=== PATIENT | female | born 1990 | race African-American/Black ===

== ENCOUNTER → 2020-07-14 08:04 | Outpatient (BNVA) | payer OTHER, SELFPAY | PROVIDERS: PCP Internal Medicine; Visit Provider Family Medicine Adult Medicine ==

== ENCOUNTER → 2020-08-09 13:52 | Outpatient (BNVA) | payer OTHER, SELFPAY | PROVIDERS: PCP Internal Medicine; Visit Provider Nurse Practitioner Family | DX: M08.00 Unspecified juvenile rheumatoid arthritis of unspecified site (principal); M79.7 Fibromyalgia | CPT/HCPCS: 99202 ==

== ENCOUNTER 2023-06-28 13:52 | Outpatient (AMB) | payer OTHER, SELFPAY ==
--- NOTE | 2023-06-28 13:53 | A.OFFVIS_ITS ---
Intake Vital Signs 06/28/23 13:59 Height 4 ft 11 in Weight 163 lb 9.328 oz BMI 33.0 BP 116/68 Blood Pressure Location Rt brachial Position Sitting Pulse 96 Pulse Source Pulse Oximeter Pulse Oximetry (%) 99 Oxygen Delivery Method Room Air Intake Visit Reasons: juvenile rheumatoid arthritis Intake Note: New patient, internally referred, presents to office today for JRA. Previously followed by [facility] [address] [place]. MTX-ineffective, nausea Enbrel, Humira, Remicade- Either ineffective or on acceptable infusion reaction w/ Remicade September 2016 to about September 2017- Hydroxychloroquine: Stopped because of visual disturbances Tofacitinib Nov 2016 through July- lost effectiveness Orencia IV infusions Nov 2017 through January 2018- stopped because of hair thinning Cimzia January 2018 Bus Escort Required: No Accompanied by: Self / Same As Patient Allergies No Known Allergies Allergy (Verified 06/28/23 14:01) HPI HPI Comments History of Present Illness Details Ms. Cevallos is a pleasant 29 year old female who presents to the office to establish care given her history of JRA/RA. She also reports having fibromyalgia. Her most painful area is her low back with radiation into bilateral lower extremities. Her pain is across her low back and radiates down her legs laterally with associated numbness, burning and tingling. She states this pain has been present for over three years and may have been incited by . She also has complaints of pain to multiple joints. Her last medicat ion regimen for RA was prednisone 1 mg TID and monthly Actemra infusions. In the past she has tried methotrexate, enbrel, humira, remicade, hydroxychloroquine, orencia and cimzia with either decreased effect over time, adverse effects or no effect. She has had a DEXA scan in 2020 that was not significant for osteoporosis. She has been on prednisone for long periods of time and radijeffry does not want to do that again. She reports pain onset was gradual, constant and rates the pain a 9/10. She states the pain is interfering with sleep, activities of daily living and she cannot function normally. The patient reports the pain in terms of tissue damage as stabbing, pulsing, sharp, cramping as well as tiring, sickening and radiating. In the past she has received joint injections to her shoulders, knees and wrists with no alleviation on her pain. She has tried the maximum dose of Tramadol which worked initially but quickly built a tolerance. She has been on gabapentin for years and has not tried lyrica or savella. She is currently on cymbalta for mood, and does not notice any changes in pain with its use. She is currently seeing a therapist every two weeks and her psychiatrist every two months. She notes having difficulty with depression/anxiety, as she has a son who is nonverbal with a potential musculoskeletal disorder and has had difficulty getting services for him. She has tried physical therapy in the past for many different pains, but would end up exacerbating her pain and was not able to tolerate it. Although with 2 young children; a 4-year-old and 1 under a year old. [facility] Medical History (Updated 07/04/23 @ 10:42 by Faye Chandra [facility]) Long-term use of immunosuppressant medication Screening examination for infectious disease Seronegative rheumatoid arthritis Asthma Anxiety History of anemia Rheumatoid arthritis, unspecified Hemorrhoid Frequent headaches Other intervertebral disc degeneration, lumbar region Surgical History (Updated 06/28/23 @ 14:01 by Cielo Ruiz CCM) History of 2 sections Hx of colonoscopy History of appendectomy Social History (Updated 06/28/23 @ 14:13 by ARIEL Rodriguez) Alcohol intake: current Alcohol intake frequency: does not drink Patient Tobacco Use Status: Never used Tobacco e-Cigarette/Vaping Use: Never Used Current occupational status: unemployed Review of Systems Const All systems reviewed & are unremarkable except as noted in HPI and below Physical Exam Vital Signs: Last Vital Signs Pulse 96 06/28/23 13:59 BP 116/68 06/28/23 13:59 Pulse Ox 99 06/28/23 13:59 Oxygen Delivery Method Room Air 06/28/23 13:59 BMI result Body Mass Index 33.0 APPEARANCE: Patient in no acute distress, groomed, nourished EYES no redness, normal EARS:? External ear normal. NOSE/SINUS:? Airflow through both nares, no nasal discharge, no bleeding THROAT:? Oral mucosa moist, no ulcerations NECK:? No thyromegaly or masses, no adenopathy, trachea midline. HEART:? Regular rhythm, S1-S2 heard, no murmurs, rubs or gallops. LUNG:? Clear to percussion and auscultation EXTREMITIES:? No edema, no calf tenderness, normal peripheral pulses. NEURO:? Oriented and alert x3.? No focal weakness.? Reflexes symmetric.? Gait normal. SKIN:? There are no skin lesions evident. No objective signs of Raynaud's phenomenon. JOINT EXAM: Cervical Spine:.? Full range of motion without pain; no tenderness. Thoracic Spine:.? No scoliosis.? No tenderness on palpation. Lumbar Spine:.? Alignment normal.? Full range of motion without pain, mild tenderness. Chest Wall:.? No tenderness, swelling, increased warmth or erythema. Hands:.? Normal pain-free range of motion with tenderness right MCP 1 2 and 3 but no swelling, increased warmth or erythema. Able to make a full fist and has some decrease skate maker strength bilaterally Wrists:.? Normal pain-free range of motion with tenderness and trace swelling to left wrist, but no increased warmth or erythema. Reduced range of motion to right wrist Elbows:. Normal pain-free range of motion with tenderness right lateral epicondyle but no swelling, increased warmth or erythema. Shoulders:.?? Full range of motion without pain. No tenderness, weakness, swelling, increased warmth or erythema. Hips:.? Full range of motion without pain. Hip bursa:.? No tenderness. Knees:.?? Normal pain-free range of motion without tenderness, swelling, increased warmth or erythema.? There is no effusion or crepitation Ankles:.? Normal pain-free range of motion without tenderness, swelling, increased warmth or erythema. Feet:.? Normal pain-free range of motion with tenderness right foot across the MTP, but no swelling, increased warmth or erythema. Tender points:? No tenderness to digital palpation at the occiput, trapezius, second rib, lateral epicondyle, knees, greater trochanter and gluteal area bilaterally. 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 Cevallos with history of JRA/RA here to reestablish care. She has had some lies changes including baby within the last year caring for her 4-year-old son who has developmental challenges. She has been off of medication for at least 2 years and so I will obtain x-rays and labs to establish her baseline. She was last on Actemra and prednisone. I think it makes sense to restart those. The patient does not like to self inject so she prefers to do the infusion. I will put through the PA for Actemra infusions. We discussed the possible side effects of being on Actemra and immunosuppressive medication in general. I spent 50 minutes reviewing her history, evaluating assessing patient and documenting Follow-up in 2 weeks to review diagnostics and further discuss treatment course Orders: Orders JANET Reflex Titer and Pattern 06/28/23 M06.00 - Rheumatoid arthritis without rheumatoid factor, unspecified site, M08.00 - Unspecified juvenile rheumatoid arthritis of unspecified site, Z11.9 - Encounter for screening for infectious and parasitic diseases, unspecified Anti Extractable Nuclear Ag 06/28/23 M06.00 - Rheumatoid arthritis without rheumatoid factor, unspecified site, M08.00 - Unspecified juvenile rheumatoid arthritis of unspecified site, Z11.9 - Encounter for screening for infectious and parasitic diseases, unspecified Complement C4 06/28/23 M06.00 - Rheumatoid arthritis without rheumatoid factor, unspecified site, M08.00 - Unspecified juvenile rheumatoid arthritis of unspecified site, Z11.9 - Encounter for screening for infectious and parasitic diseases, unspecified Complete Blood Count Auto Diff 06/28/23 M06.00 - Rheumatoid arthritis without rheumatoid factor, unspecified site, M08.00 - Unspecified juvenile rheumatoid arthritis of unspecified site, Z11.9 - Encounter for screening for infectious and parasitic diseases, unspecified Comprehensive Met. Panel 06/28/23 M06.00 - Rheumatoid arthritis without rheumatoid factor, unspecified site, M08.00 - Unspecified juvenile rheumatoid arthritis of unspecified site, Z11.9 - Encounter for screening for infectious and parasitic diseases, unspecified C Reactive Protein 06/28/23 M06.00 - Rheumatoid arthritis without rheumatoid factor, unspecified site, M08.00 - Unspecified juvenile rheumatoid arthritis of unspecified site, Z11.9 - Encounter for screening for infectious and parasitic diseases, unspecified Erythrocyte Sedimentation Rate 06/28/23 M06.00 - Rheumatoid arthritis without rheumatoid factor, unspecified site, M08.00 - Unspecified juvenile rheumatoid arthritis of unspecified site, Z11.9 - Encounter for screening for infectious and parasitic diseases, unspecified Immunofixation Pnl, Serum 06/28/23 M06.00 - Rheumatoid arthritis without rheumatoid factor, unspecified site, M08.00 - Unspecified juvenile rheumatoid arthritis of unspecified site, Z11.9 - Encounter for screening for infectious and parasitic diseases, unspecified T Spot TB 06/28/23 M06.00 - Rheumatoid arthritis without rheumatoid factor, unspecified site, M08.00 - Unspecified juvenile rheumatoid arthritis of unspecified site, Z11.9 - Encounter for screening for infectious and parasitic diseases, unspecified Hepatitis A,B,C Profile 06/28/23 M06.00 - Rheumatoid arthritis without rheumatoid factor, unspecified site, M08.00 - Unspecified juvenile rheumatoid arthritis of unspecified site, Z11.9 - Encounter for screening for infectious and parasitic diseases, unspecified XR hand LT min 3V 06/28/23 M06.00 - Rheumatoid arthritis without rheumatoid factor, unspecified site XR hand RT min 3V 06/28/23 M06.00 - Rheumatoid arthritis without rheumatoid factor, unspecified site XR foot LT min 3V 06/28/23 M06.00 - Rheumatoid arthritis without rheumatoid factor, unspecified site Anti-Centromere B Antibodies 06/28/23 M06.00 - Rheumatoid arthritis without rheumatoid factor, unspecified site, M08.00 - Unspecified juvenile rheumatoid arthritis of unspecified site, Z11.9 - Encounter for screening for infectious and parasitic diseases, unspecified Anti DNA DS Antibody 06/28/23 M06.00 - Rheumatoid arthritis without rheumatoid factor, unspecified site, M08.00 - Unspecified juvenile rheumatoid arthritis of unspecified site, Z11.9 - Encounter for screening for infectious and parasitic diseases, unspecified Complement C3 06/28/23 M06.00 - Rheumatoid arthritis without rheumatoid factor, unspecified site, M08.00 - Unspecified juvenile rheumatoid arthritis of u nspecified site, Z11.9 - Encounter for screening for infectious and parasitic diseases, unspecified Creatine Kinase Total 06/28/23 M06.00 - Rheumatoid arthritis without rheumatoid factor, unspecified site, M08.00 - Unspecified juvenile rheumatoid arthritis of unspecified site, Z11.9 - Encounter for screening for infectious and parasitic diseases, unspecified Immunoglobulins,IgG IgA IgM 06/28/23 M06.00 - Rheumatoid arthritis without rheumatoid factor, unspecified site, M08.00 - Unspecified juvenile rheumatoid arthritis of unspecified site, Z11.9 - Encounter for screening for infectious and parasitic diseases, unspecified Protein Electrophoresis, Serum 06/28/23 M06.00 - Rheumatoid arthritis without rheumatoid factor, unspecified site, M08.00 - Unspecified juvenile rheumatoid arthritis of unspecified site, Z11.9 - Encounter for screening for infectious and parasitic diseases, unspecified UA w Microscopic 06/28/23 M06.00 - Rheumatoid arthritis without rheumatoid factor, unspecified site, M08.00 - Unspecified juvenile rheumatoid arthritis of unspecified site, Z11.9 - Encounter for screening for infectious and parasitic diseases, unspecified XR foot RT min 3V 06/28/23 M06.00 - Rheumatoid arthritis without rheumatoid factor, unspecified site Coding Level of Care Code New Pt Level 5 (29915) Diagnoses Seronegative rheumatoid arthritis M06.00 Screening examination for infectious disease Z11.9 Long-term use of immunosuppressant medication Z79.60
[2023-06-28 13:59] VITALS: BP 116/68; PULSE 96; O2SAT 99; BMI 33.0
== END 2023-06-28 14:45 | disposition home or self-care (01) ==
PROVIDERS: PCP Internal Medicine; Visit Provider Nurse Practitioner Family
DX: M06.09 Rheumatoid arthritis without rheumatoid factor, multiple sites (principal); Z11.9 Encounter for screening for infectious and parasitic diseases, unspecified; Z79.60 Long term (current) use of unspecified immunomodulators and immunosuppressants
CPT/HCPCS: 99205

== ENCOUNTER → 2023-06-28 13:52 | Outpatient (BNVA) | payer OTHER, SELFPAY | PROVIDERS: PCP Internal Medicine; Visit Provider Nurse Practitioner Family | DX: M06.00 Rheumatoid arthritis without rheumatoid factor, unspecified site (principal); M08.00 Unspecified juvenile rheumatoid arthritis of unspecified site; M79.7 Fibromyalgia; Z79.60 Long term (current) use of unspecified immunomodulators and immunosuppressants; Z11.9 Encounter for screening for infectious and parasitic diseases, unspecified | CPT/HCPCS: 99202 ==

== ENCOUNTER 2023-07-08 11:11 | Outpatient (REF) | payer OTHER, SELFPAY ==
--- NOTE | ~2023-07-08 | XR_ITS ---
EXAMINATION: XR FOOT, RIGHT CLINICAL INFORMATION: Rheumatoid arthritis, without rheumatoid factor. COMPARISON: None available. TECHNIQUE: AP, lateral, and oblique views of the right foot. FINDINGS: The bones and soft tissues are normal. No fracture. Alignment is anatomic. Joint spaces are maintained. XR/XR foot RT min 3V IMPRESSION: Normal right foot. EXAMINATION: XR FOOT, LEFT CLINICAL INFORMATION: Rheumatoid arthritis, without rheumatoid factor. COMPARISON: None available. TECHNIQUE: AP, lateral, and oblique views of the left foot. FINDINGS: Bony alignment and mineralization are normal. No fracture or dislocation is seen. A small left ankle joint effusion is suspected. Boehler's angle is normal. There is a tiny plantar calcaneal spur. No abnormal bone erosion is seen. There is no focal soft tissue swelling, gas or foreign body. IMPRESSION: 1. A very small left ankle joint effusion is suspected. 2. There is a tiny calcaneal plantar spur.
--- NOTE | ~2023-07-08 | XR_ITS ---
EXAMINATION: XR HAND, RIGHT CLINICAL INFORMATION: Rheumatoid arthritis without rheumatoid factor. COMPARISON: None available. TECHNIQUE: PA, lateral, and oblique views of the right hand. FINDINGS: The bones and soft tissues are normal. No fracture. Alignment is anatomic. Joint spaces are maintained. No erosions or soft tissue calcifications. XR/XR hand RT min 3V IMPRESSION: Normal right hand. EXAMINATION: XR HAND, LEFT CLINICAL INFORMATION: Rheumatoid arthritis without rheumatoid factor. COMPARISON: None available. TECHNIQUE: PA, lateral, and oblique views of the left hand. FINDINGS: The bones and soft tissues are normal. No fracture. Alignment is anatomic. Joint spaces are maintained. No erosions or soft tissue calcifications. IMPRESSION: Normal left hand.
--- NOTE | ~2023-07-08 | XR_ITS ---
EXAMINATION: XR HAND, RIGHT CLINICAL INFORMATION: Rheumatoid arthritis without rheumatoid factor. COMPARISON: None available. TECHNIQUE: PA, lateral, and oblique views of the right hand. FINDINGS: The bones and soft tissues are normal. No fracture. Alignment is anatomic. Joint spaces are maintained. No erosions or soft tissue calcifications. XR/XR hand LT min 3V IMPRESSION: Normal right hand. EXAMINATION: XR HAND, LEFT CLINICAL INFORMATION: Rheumatoid arthritis without rheumatoid factor. COMPARISON: None available. TECHNIQUE: PA, lateral, and oblique views of the left hand. FINDINGS: The bones and soft tissues are normal. No fracture. Alignment is anatomic. Joint spaces are maintained. No erosions or soft tissue calcifications. IMPRESSION: Normal left hand.
--- NOTE | ~2023-07-08 | XR_ITS ---
EXAMINATION: XR FOOT, RIGHT CLINICAL INFORMATION: Rheumatoid arthritis, without rheumatoid factor. COMPARISON: None available. TECHNIQUE: AP, lateral, and oblique views of the right foot. FINDINGS: The bones and soft tissues are normal. No fracture. Alignment is anatomic. Joint spaces are maintained. XR/XR foot LT min 3V IMPRESSION: Normal right foot. EXAMINATION: XR FOOT, LEFT CLINICAL INFORMATION: Rheumatoid arthritis, without rheumatoid factor. COMPARISON: None available. TECHNIQUE: AP, lateral, and oblique views of the left foot. FINDINGS: Bony alignment and mineralization are normal. No fracture or dislocation is seen. A small left ankle joint effusion is suspected. Boehler's angle is normal. There is a tiny plantar calcaneal spur. No abnormal bone erosion is seen. There is no focal soft tissue swelling, gas or foreign body. IMPRESSION: 1. A very small left ankle joint effusion is suspected. 2. There is a tiny calcaneal plantar spur.
[2023-07-08 11:41] LABS: MANUAL DIFF FLAG NO
[2023-07-08 12:01] LABS: Basophils Percent Auto 0.3 % (0-2); Eosinophils Absolute Auto 0.3 X10*3/uL (0.0-0.4); Eosinophils Percent Auto 4.3 % (0-4); Hemoglobin 13.8 g/dl (12.0-16.0); Imm Gran Abs Auto 0.02 X10*3/uL (0.00-0.03); Imm Gran Pct Auto 0.3 % (0.0-0.4); Lymphocytes Absolute Auto 1.8 X10*3/uL (1.2-4.9); Lymphocytes Percent Auto 29.6 % (20-40); Mean Corpuscular HGB Conc 33.7 g/dl (31.0-35.0); Mean Corpuscular Hemoglobin 28.9 pg (27.0-33.0); Mean Corpuscular Volume 85.8 fL (80.0-98.0); Mean Platelet Volume 9.3 fL (9.4-12.3); Monocytes Absolute Auto 0.5 X10*3/uL (0.1-1.2); Monocytes Percent Auto 8.5 % (2-11); Neutrophils Absolute Auto 3.5 x10*3/uL (2.0-8.3); Platelet Count 255 X10*3/uL (160-400); Red Blood Count 4.78 X10*6/uL (4.20-5.50); Red Cell Distribution Width 12.4 % (11.0-16.0); White Blood Count 6.1 X10*3/uL (4.8-10.8)
[2023-07-08 12:46] LABS: Erythrocyte Sedimentation Rate 8 MM/HR (0-20)
[2023-07-08 13:28] LABS: Alanine Aminotransferase 54 U/L (0-31); Alkaline Phosphatase 120 U/L (39-117); Anion Gap 9 (12-20); Aspartate Amino Transferase 29 U/L (5-31); Bilirubin Total 0.4 mg/dL (0.0-1.0); Blood Urea Nitrogen 9 mg/dL (9-16); C Reactive Protein 0.13 mg/dL (< or = 0.50); Calcium 9.6 mg/dL (8.4-10.2); Carbon Dioxide 27 mmol/L (22-29); Chloride 106 mmol/L (96-108); Estimated Glomerular Filt Rate > 60; Glucose Random 90 mg/dL (60-115); Potassium 4.1 mmol/L (3.3-5.1); Sodium 138 mmol/L (135-145); Total Protein 7.4 g/dL (6.5-8.0)
[2023-07-08 13:52] LABS: Appearance Urine Clear; Color Urine Yellow; Glucose Urine UA Negative (Negative); Leukocyte Esterase Urine Negative (Negative); Nitrite Urine Negative (Negative); PH 7.5 (5.0-9.0); Urine Blood Negative (Negative); Urine Ketones Negative (Negative); Urine Protein Negative (Neg-Trace)
[2023-07-08 13:59] LABS: Bacteria Urine None Seen (None Seen); Hyaline Casts Urine 0-2 /LPF (0-2); RBC Urine 0-2 /HPF (0-2); Squamous Epithelial Cell Urine 0-2 /HPF (0-2); WBC Urine 0-5 /HPF (0-5)
[2023-07-09 05:09] LABS: HBS Num1 0.68 mIU/mL (0-7.99); HBsAGNum1 0.29 S/CO (0.00-0.99); Hepatitis B Core Antibody Nonreactive (Nonreactive); Hepatitis B Surface Antigen Negative (Negative); ~HepC Num1 0.07 S/CO (0.00-0.79); ~Hepatitis B Surface Antibody NONREACTIVE (Nonreactive); ~Hepatitis C Antibody Nonreactive (Nonreactive)
[2023-07-09 05:41] LABS: Hepatitis A Antibody IgM 0.16 Index (0-0.79); ~Hepatitis A Antibody IgM Nonreactive (Nonreactive)
[2023-07-09 10:04] LABS: Complement C3 137 mg/dL (83-193)
[2023-07-09 22:08] LABS: Prot Elec - Albumin 4.1 g/dL (3.8-4.8); Prot Elec - Alpha1 0.3 g/dL (0.2-0.3); Prot Elec - Alpha2 0.7 g/dL (0.5-0.9); Prot Elec - Beta 1 0.5 g/dL (0.4-0.6); Prot Elec - Beta 2 0.5 g/dL (0.2-0.5)
[2023-07-09 23:13] LABS: Anti DNA DS Antibody <1 IU/mL; SM/Ribonucleoprotein Ab <1.0 NEG AI (<1.0 NEG); Smith Protein <1.0 NEG AI (<1.0 NEG)
[2023-07-10 13:34] LABS: IgA 403 mg/dL (47-310); IgG 1038 mg/dL (600-1640); IgM 124 mg/dL (50-300)
[2023-07-10 20:58] LABS: TS Negative Control Passed; TS Panel A 0; TS Panel B 0; TS Positive Control Passed; TSpotTB Negative (Negative)
[2023-07-11 22:14] LABS: Anti-Centromere B Antibodies <1.0 NEG AI (<1.0 NEG)
[2023-07-12 12:18] LABS: Anti Nuclear Antibody Pattern Nuclear, Speckled; Anti Nuclear Antibody Screen POSITIVE (NEGATIVE)
== END 2023-07-08 11:12 | disposition home or self-care (01) ==
LOC: HO.LAB 11:11
PROVIDERS: Visit Provider Nurse Practitioner Family
DX: M08.00 Unspecified juvenile rheumatoid arthritis of unspecified site (principal); Z11.9 Encounter for screening for infectious and parasitic diseases, unspecified
CPT/HCPCS: 36415; 73130; 73630; 80053; 81001; 82550; 82784; 84165; 85025; 85652; 86038; 86039; 86140; 86160; 86225; 86235; 86334; 86481; 86704; 86706; 86709; 86803; 87340

== ENCOUNTER 2023-07-12 13:44 | Outpatient (AMB) | payer OTHER, SELFPAY ==
--- NOTE | 2023-07-12 13:48 | MHC.OFFVIS ---
Intake Vital Signs 07/12/23 13:52 Height 4 ft 11 in Weight 163 lb 9.328 oz BMI 33.0 BP 120/90 H Blood Pressure Location Rt brachial Position Sitting Pulse 94 Pulse Source Pulse Oximeter Temp 97.4 F Temp Source Skin Pulse Oximetry (%) 97 Oxygen Delivery Method Room Air Intake Visit Reasons: JRA/Labs now/Poss Actemra infusion Intake Note: Patient last seen 06/28/23 by Prateek, presents today for follow up and test results. Travel Writer Required: No Accompanied by: Child Allergies No Known Allergies Allergy (Verified 07/12/23 13:53) HPI HPI Comments History of Present Illness Details Ms. Cevallos has returned to review her labs and discuss treatment with Actemra infusion for her seronegative rheumatoid arthritis/JRA. She is accompanied by her young son Matt. Patient reports that she is currently having bronchitis and a cough and wants to delay starting the infusion until that has resolved. She reports no further complaints since last visit. Initial visit 06/28/2023 Faye: Ms. Cevallos is a pleasant 29 year old female who presents to the office to establish care given her history of JRA/RA. She also reports having fibromyalgia. Her most painful area is her low back with radiation into bilateral lower extremities. Her pain is across her low back and radiates down her legs laterally with associated numbness, burning and tingling. She states this pain has been present for over three years and may have been incited by . She also has complaints of pain to multiple joints. Her last medication regimen for RA was prednisone 1 mg TID and monthly Actemra infusions. In the past she has tried methotrexate, enbrel, humira, remicade, hydroxychloroquine, orencia and cimzia with either decreased effect over time, adverse effects or no effect. She has had a DEXA scan in 2020 that was not significant for osteoporosis. She has been on prednisone for long periods of time and radiates does not want to do that again. She reports pain onset was gradual, constant and rates the pain a 9/10. She states the pain is interfering with sleep, activities of daily living and she cannot function normally. The patient reports the pain in terms of tissue damage as stabbing, pulsing, sharp, cramping as well as tiring, sickening and radiating. In the past she has received joint injections to her shoulders, knees and wrists with no alleviation on her pain. She has tried the maximum dose of Tramadol which worked initially but quickly built a tolerance. She has been on gabapentin for years and has not tried lyrica or savella. She is currently on cymbalta for mood, and does not notice any changes in pain with its use. She is currently seeing a therapist every two weeks and her psychiatrist every two months. She notes having difficulty with depression/anxiety, as she has a son who is nonverbal with a potential musculoskeletal disorder and has had difficulty getting services for him. She has tried physical therapy in the past for many different pains, but would end up exacerbating her pain and was not able to tolerate it. Although with 2 young children; a 4-year-old and 1 under a year old. [facility] Medical History (Updated 07/04/23 @ 10:42 by [facility] Long-term use of immunosuppressant medication Screening examination for infectious disease Seronegative rheumatoid arthritis Asthma Anxiety History of anemia Rheumatoid arthritis, unspecified Hemorrhoid Frequent headaches Other intervertebral disc degeneration, lumbar region Surgical History History of 2 sections Hx of colonoscopy History of appendectomy Social History Alcohol intake: current Alcohol intake frequency: does not drink Patient Tobacco Use Status: Never used Tobacco e-Cigarette/Vaping Use: Never Used Current occupational status: unemployed Review of Systems Const All systems reviewed & are unremarkable except as noted in HPI and below Physical Exam Vital Signs: Last Vital Signs Temp 97.4 F 07/12/23 13:52 Pulse 94 07/12/23 13:52 BP 120/90 H 07/12/23 13:52 Pulse Ox 97 07/12/23 13:52 Oxygen Delivery Method Room Air 07/12/23 13:52 BMI result Body Mass Index 33.0 Vital signs reviewed. Constitutional: Non-toxic appearing. No acute distress. Well-developed and well-nourished. HEENT: Normocephalic and atraumatic. External auditory canals without erythema or edema bilaterally. Skin: Warm and dry. No rashes or lesions noted. Cardio: Regular rate and rhythm. No murmurs, gallops, or rubs. No lower extremity edema. No JVD. Pulmonary: No respiratory distress. No accessory muscle usage. Musculoskeletal: Normal range of motion in joints throughout the body. No deformity or other signs of injury. Neuro: Alert and oriented x4. Cranial nerves 2-12 grossly intact. No focal deficits appreciated. 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 Cevallos with history of JRA/RA here to reestablish care. She has had some life changes including baby within the last year caring for her 8-year-old son who has developmental challenges. She has been off of medication for at least 2 years so we ordered Actemra for her to start the infusion 4 mg per kg monthly. No immediate concern with the results of her labs and x-ray. She wants to hold off having the infusion at this time of her from bronchitis and a cough. patient will call the infusion center and make that appointment. We discussed the possible side effects of being on Actemra and immunosuppressive medication in general. She will obtain labs 1 would be for her next visit in 3 months. She has baseline mild elevation in ALT. Patient denies alcohol use. She may be taking too much Tylenol so she will review that and decrease her intake. So be careful to watch her ALT while taking Actemra. I spent 20 minutes reviewing her chart, evaluating assessing patient and documenting Follow-up in 12 weeks to to assess for improvement and review labs. 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 Panel Today M06.00 - Rheumatoid arthritis without rheumatoid factor, unspecified site, Z79.60 - remote computer terminal operator (current) use of unspecified immunomodulators and immunosuppressants Coding Level of Care Code Est Pt Level 3 (99091) Diagnoses Seronegative rheumatoid arthritis M06.00 Long-term use of immunosuppressant medication Z79.60
[2023-07-12 13:52] VITALS: BP 120/90; PULSE 94; TEMP 36.3; O2SAT 97; BMI 33.0
== END 2023-07-12 14:26 | disposition home or self-care (01) ==
PROVIDERS: PCP Internal Medicine; Visit Provider Nurse Practitioner Family
DX: M06.00 Rheumatoid arthritis without rheumatoid factor, unspecified site (principal); Z79.60 Long term (current) use of unspecified immunomodulators and immunosuppressants
CPT/HCPCS: 99213

== ENCOUNTER → 2023-07-12 13:44 | Outpatient (BNVA) | payer OTHER, SELFPAY | PROVIDERS: PCP Internal Medicine; Visit Provider Nurse Practitioner Family | DX: M06.00 Rheumatoid arthritis without rheumatoid factor, unspecified site (principal); Z79.60 Long term (current) use of unspecified immunomodulators and immunosuppressants | CPT/HCPCS: 99212 ==

== ENCOUNTER 2023-10-10 09:56 | Outpatient (AMB) | payer OTHER, SELFPAY ==
--- NOTE | 2023-10-10 09:59 | MHC.OFFVIS ---
Vital Signs 10/10/23 10:01 Height 4 ft 11 in Weight 165 lb BMI 33.3 BP 120/80 Blood Pressure Location Rt brachial Pulse 89 Pulse Source Pulse Oximeter Pulse Oximetry (%) 96 Oxygen Delivery Method Room Air Intake Visit Reasons: JRA/lm Intake Note: Patient presents for JRA. Having very bad sciatica pain on lower back Allergies No Known Allergies Allergy (Verified 10/10/23 10:05) Medication List - Last Reconciled 10/10/23 by Rodrigo Schneider MD albuterol sulfate 90 mcg/actuation (Ventolin HFA) inhalation clonazepam 0.5 mg PO DAILY meclizine 25 mg PO TID PRN HPI Comments Details: This is a 32-year-old female with seronegative RA who presents for follow-up. Patient received 2 Actemra infusions so far. Infusions were uneventful. She states that she continues to have some joint aches but no significant swelling. She is having significant sciatica pain. She has lower back pain radiating down both lower extremities. She was evaluated by pain management in the past and had a cortisone injection, she stated that it did not help at all. She does not want to go back to pain management. Initial visit 06/28/2023 Faye: Ms. Cevallos is a pleasant 29 year old female who presents to the office to establish care given her history of JRA/RA. She also reports having fibromyalgia. Her most painful area is her low back with radiation into bilateral lower extremities. Her pain is across her low back and radiates down her legs laterally with associated numbness, burning and tingling. She states this pain has been present for over three years and may have been incited by . She also has complaints of pain to multiple joints. Her last medication regimen for RA was prednisone 1 mg TID and monthly Actemra infusions. In the past she has tried methotrexate, enbrel, humira, remicade, hydroxychloroquine, orencia and cimzia with either decreased effect over time, adverse effects or no effect. She has had a DEXA scan in 2020 that was not significant for osteoporosis. She has been on prednisone for long periods of time and radiates does not want to do that again. She reports pain onset was gradual, constant and rates the pain a 9/10. She states the pain is interfering with sleep, activities of daily living and she cannot function normally. The patient reports the pain in terms of tissue damage as stabbing, pulsing, sharp, cramping as well as tiring, sickening and radiating. In the past she has received joint injections to her shoulders, knees and wrists with no alleviation on her pain. She has tried the maximum dose of Tramadol which worked initially but quickly built a tolerance. She has been on gabapentin for years and has not tried lyrica or savella. She is currently on cymbalta for mood, and does not notice any changes in pain with its use. She is currently seeing a therapist every two weeks and her psychiatrist every two months. She notes having difficulty with depression/anxiety, as she has a son who is nonverbal with a potential musculoskeletal disorder and has had difficulty getting services for him. She has tried physical therapy in the past for many different pains, but would end up exacerbating her pain and was not able to tolerate it. Although with 2 young children; a 4-year-old and 1 under a year old. [facility] Medical History (Updated 10/10/23 @ 11:02 by Rodrigo Schneider MD) Seronegative rheumatoid arthritis Asthma Anxiety History of anemia Rheumatoid arthritis, unspecified Hemorrhoid Frequent headaches Other intervertebral disc degeneration, lumbar region Surgical History History of 2 sections Hx of colonoscopy History of appendectomy Social History Alcohol intake: current Alcohol intake frequency: does not drink Patient Tobacco Use Status: Never used Tobacco e-Cigarette/Vaping Use: Never Used Current occupational status: unemployed Review of Systems [facility] Reports back pain, Reports arthralgias, Denies joint swelling, Reports numbness, Reports radiating pain into limb and Reports stiffness Neuro Reports numbness Physical Exam Vital Signs: Last Vital Signs Pulse 89 10/10/23 10:01 BP 120/80 10/10/23 10:01 Pulse Ox 96 10/10/23 10:01 Oxygen Delivery Method Room Air 10/10/23 10:01 BMI result Body Mass Index 33.3 Const General: cooperative, healthy appearing and comfortable Nutritional Appearance: obese Orientation/consciousness: patient oriented x3 Limitations: no limitations HEENT Head: Yes normocephalic and Yes atraumatic Mouth: moist mucous membranes Resp Effort & Inspection: normal respiratory effort and able to speak in complete sentences Auscultation: clear to auscultation bilaterally Cardio Rate: regular rate Rhythm: regular rhythm Skin General skin exam: no rashes or lesions noted Neuro General: patient oriented x3 Extrem Other: No active synovitis Normal nailfold capillaroscopy Few fibromyalgia tender points Positive straight leg raise test bilaterally Assessment & Plan Assessment & Plan (1) Seronegative rheumatoid arthritis: Comment: dx with JRA at age 6 tried methotrexate, enbrel, humira, remicade, hydroxychloroquine, orencia and cimzia with either decreased effect over time Actemra infusion approx 2020 effective Code(s): M06.00 - Rheumatoid arthritis without rheumatoid factor, unspecified site Category: Medical Plan: This is a 32-year-old female with seronegative RA who presents for follow-up. He is on Actemra infusions. Doing well overall with no active synovitis. Inflammatory markers normal. Continue Actemra infusions. 4 milligrams/kilograms q.4 weeks Labs before next visit in 4 months (2) Sciatica: Code(s): M54.30 - Sciatica, unspecified side Category: Medical Qualifiers: Laterality: bilateral Qualified Code(s): M54.31 - Sciatica, right side; M54.32 - Sciatica, left side Plan: Patient not interested pain management evaluation. Agreeable to start PT. Referred patient to PT (3) Long-term use of immunosuppressant medication: Code(s): Z79.60 - [facility] (current) use of unspecified immunomodulators and immunosuppressants Category: Medical (4) Fibromyalgia: Code(s): M79.7 - Fibromyalgia Category: Medical Plan: Has tried different meds in the past including gabapentin. Does not look like that she tried Savella. Was on duloxetine for her anxiety/depression. Discussed management of fibromyalgia with patient. Is a noninflammatory, non-autoimmune central afferent processing disorder leading to a diffuse pain syndrome. Patient follows up regularly with her psychotherapist and psychiatrist. Try to follow sleep hygiene practices. Consider a sleep study to rule out FOSTER. Patient would benefit from increased physical activity, either through formal physical therapy or by joining a gym. Advised patient that she should start activity slowly and increase as tolerated. Consider low-impact exercises such as walking, swimming, aqua therapy stretching, yoga. Plan I spent 47 minutes reviewing patient's chart, evaluating patient, ordering diagnostic workup, counseling patient and documenting in the chart Orders: Orders Comprehensive Met. Panel 4 Months M06.00 - Rheumatoid arthritis without rheumatoid factor, unspecified site, Z79.60 - [employer] (current) use of unspecified immunomodulators and immunosuppressants C Reactive Protein 4 Months M06.00 - Rheumatoid arthritis without rheumatoid factor, unspecified site, Z79.60 - [facility] [facility] (current) use of unspecified immunomodulators and immunosuppressants Complete Blood Count Auto Diff 4 Months M06.00 - Rheumatoid arthritis without rheumatoid factor, unspecified site, Z79.60 - [employer] [facility] (current) use of unspecified immunomodulators and immunosuppressants Erythrocyte Sedimentation Rate 4 Months M06.00 - Rheumatoid arthritis without rheumatoid factor, unspecified site, Z79.60 - [employer] (current) use of unspecified immunomodulators and immunosuppressants PT Evaluation and Treatment Today M54.30 - Sciatica, unspecified side Coding Level of Care Code Est Pt Level 5 (52661) Diagnoses Seronegative rheumatoid arthritis M06.00 Bilateral sciatica M54.31; M54.32 Laterality: bilateral Long-term use of immunosuppressant medication Z79.60 Fibromyalgia M79.7
[2023-10-10 10:01] VITALS: BP 120/80; PULSE 89; O2SAT 96; BMI 33.3
== END 2023-10-10 10:34 | disposition home or self-care (01) ==
PROVIDERS: PCP Student in an Organized Health Care Education/Training Program; Visit Provider Student in an Organized Health Care Education/Training Program
DX: M06.09 Rheumatoid arthritis without rheumatoid factor, multiple sites (principal); M54.31 Sciatica, right side; M54.32 Sciatica, left side; Z79.60 Long term (current) use of unspecified immunomodulators and immunosuppressants; M79.7 Fibromyalgia
CPT/HCPCS: 99215

== ENCOUNTER → 2023-10-10 09:56 | Outpatient (BNVA) | payer OTHER, SELFPAY | PROVIDERS: PCP Student in an Organized Health Care Education/Training Program; Visit Provider Student in an Organized Health Care Education/Training Program | DX: M06.00 Rheumatoid arthritis without rheumatoid factor, unspecified site (principal); M54.32 Sciatica, left side; M54.31 Sciatica, right side; M79.7 Fibromyalgia; Z79.60 Long term (current) use of unspecified immunomodulators and immunosuppressants | CPT/HCPCS: 99212 ==

== ENCOUNTER 2024-03-31 12:29 | Outpatient (AMB) | payer OTHER, SELFPAY ==
--- NOTE | 2024-03-31 12:48 | A.OFFVIS_ITS ---
Vital Signs 03/31/24 12:50 Height 4 ft 11 in Weight 167 lb 1.766 oz BMI 33.7 BP 122/80 Blood Pressure Location Rt brachial Position Sitting Pulse 86 Pulse Source Pulse Oximeter Pulse Oximetry (%) 96 Oxygen Delivery Method Room Air Intake Visit Reasons: RA Intake Note: Patient presents for RA. Allergies No Known Allergies Allergy (Verified 03/31/24 12:50) Medication List - Last Reconciled 03/31/24 by Rodrigo Schneider MD albuterol sulfate 90 mcg/actuation (Ventolin HFA) inhalation clonazepam 0.5 mg PO DAILY meclizine 25 mg PO TID PRN HPI Comments Details: This is a 33-year-old female with seronegative RA who presents for follow-up. On Actemra infusions every 4 weeks. She stated that she has been doing about the same overall. She continues to have intermittent left wrist achiness. Recently she had a mild sinus infection that resolved in a few days without antibiotics. She states that she will be starting school to learn aesthetics steady that her school should have sent over some documents that need to be completed by ammonium sulfate operator. Initial visit 06/28/2023 Faye: Ms. Cevallos is a pleasant 29 year old female who presents to the office to establish care given her history of JRA/RA. She also reports having fibromyalgia. Her most painful area is her low back with radiation into bilateral lower extremities. Her pain is across her low back and radiates down her legs laterally with associated numbness, burning and tingling. She states this pain has been present for over three years and may have been incited by . She also has complaints of pain to multiple joints. Her last medication regimen for RA was prednisone 1 mg TID and monthly Actemra infusions. In the past she has tried methotrexate, enbrel, humira, remicade, hydroxychloroquine, orencia and cimzia with either decreased effect over time, adverse effects or no effect. She has had a DEXA scan in 2020 that was not significant for osteoporosis. She has been on prednisone for long periods of time and radiates does not want to do that again. She reports pain onset was gradual, constant and rates the pain a 9/10. She states the pain is interfering with sleep, activities of daily living and she cannot function normally. The patient reports the pain in terms of tissue damage as stabbing, pulsing, sharp, cramping as well as tiring, sickening and radiating. In the past she has received joint injections to her shoulders, knees and wrists with no alleviation on her pain. She has tried the maximum dose of Tramadol which worked initially but quickly built a tolerance. She has been on gabapentin for years and has not tried lyrica or savella. She is currently on cymbalta for mood, and does not notice any changes in pain with its use. She is currently seeing a therapist every two weeks and her psychiatrist every two months. She notes having difficulty with depression/anxiety, as she has a son who is nonverbal with a potential musculoskeletal disorder and has had difficulty getting services for him. She has tried physical therapy in the past for many different pains, but would end up exacerbating her pain and was not able to tolerate it. Although with 2 young children; a 4-year-old and 1 under a year old. [facility] Medical History Seronegative rheumatoid arthritis Asthma Anxiety History of anemia Rheumatoid arthritis, unspecified Hemorrhoid Frequent headaches Other intervertebral disc degeneration, lumbar region Surgical History History of 2 sections Hx of colonoscopy History of appendectomy Social History Alcohol intake: current Alcohol intake frequency: does not drink Patient Tobacco Use Status: Never used Tobacco e-Cigarette/Vaping Use: Never Used Current occupational status: unemployed Review of Systems [facility] Reports arthralgias and Denies joint swelling Physical Exam Vital Signs: Last Vital Signs Pulse 86 03/31/24 12:50 BP 122/80 03/31/24 12:50 Pulse Ox 96 03/31/24 12:50 Oxygen Delivery Method Room Air 03/31/24 12:50 BMI result Body Mass Index 33.7 Const General: cooperative, healthy appearing and comfortable Nutritional Appearance: obese Orientation/consciousness: patient oriented x3 Limitations: no limitations HEENT Head: Yes normocephalic and Yes atraumatic Mouth: moist mucous membranes Resp Effort & Inspection: normal respiratory effort and able to speak in complete sentences Auscultation: clear to auscultation bilaterally Cardio Rate: regular rate Rhythm: regular rhythm Skin General skin exam: no rashes or lesions noted Neuro General: patient oriented x3 Extrem Other: No active synovitis Normal nailfold capillaroscopy Reduced left wrist range of motion and pain with flexion and extension Assessment & Plan Assessment & Plan (1) Seronegative rheumatoid arthritis: Comment: dx with JRA at age 6 tried methotrexate, enbrel, humira, remicade, hydroxychloroquine, orencia and cimzia with either decreased effect over time Actemra infusion approx 2020 effective Code(s): M06.00 - Rheumatoid arthritis without rheumatoid factor, unspecified site Category: Medical Plan: This is a 33-year-old female with seronegative RA who presents for follow-up. She is on Actemra infusions. Doing well overall with no active synovitis. Continue Actemra infusions. 4 milligrams/kilograms q.4 weeks Labs before next visit in 6 months (2) Long-term use of immunosuppressant medication: Code(s): Z79.60 - [facility] (current) use of unspecified immunomodulators and immuno suppressants Category: Medical Plan I spent 25 minutes reviewing patient's chart, evaluating patient, ordering diagnostic workup, counseling patient and documenting in the chart Orders: Orders Complete Blood Count Auto Diff 6 Months M06.00 - Rheumatoid arthritis without rheumatoid factor, unspecified site Erythrocyte Sedimentation Rate 6 Months M06.00 - Rheumatoid arthritis without rheumatoid factor, unspecified site Comprehensive Met. Panel 6 Months M06.00 - Rheumatoid arthritis without rheumatoid factor, unspecified site C Reactive Protein 6 Months M06.00 - Rheumatoid arthritis without rheumatoid factor, unspecified site Coding Level of Care Code Est Pt Level 4 (87512) Diagnoses Seronegative rheumatoid arthritis M06.00 Long-term use of immunosuppressant medication Z79.60
[2024-03-31 12:50] VITALS: BP 122/80; PULSE 86; O2SAT 96; BMI 33.7
== END 2024-03-31 13:06 | disposition home or self-care (01) ==
PROVIDERS: PCP Student in an Organized Health Care Education/Training Program; Visit Provider Student in an Organized Health Care Education/Training Program
DX: M06.00 Rheumatoid arthritis without rheumatoid factor, unspecified site (principal); Z79.60 Long term (current) use of unspecified immunomodulators and immunosuppressants
CPT/HCPCS: 99214

== ENCOUNTER → 2024-03-31 12:29 | Outpatient (BNVA) | payer OTHER, SELFPAY | PROVIDERS: PCP Student in an Organized Health Care Education/Training Program; Visit Provider Student in an Organized Health Care Education/Training Program | DX: M06.00 Rheumatoid arthritis without rheumatoid factor, unspecified site (principal); M79.7 Fibromyalgia; Z79.620 Long term (current) use of immunosuppressive biologic | CPT/HCPCS: 99212 ==

== ENCOUNTER 2024-05-29 07:55 | Outpatient (AMB) | payer OTHER, SELFPAY ==
--- OUTSIDE RECORDS SUMMARY | 2024-05-29 07:58 | XMS_ITS | Clinical Summary ---
Author Organization [facility] ity Address [address] [place] [address] Care Team Providers Care Mink Slicer Name Role Phone Dean Pollack MD Primary Care Provider Allergies Active Allergy Reactions Criticality Noted Date Comments Adalimumab Anaphylaxis High 04/06/2016 Hydroxychloroquine Sulfate Other 8 Vision loss Infliximab 01/06/2017 Medications predniSONE (DELTASONE) 20 mg tablet Take 3 tabs for 3 days, take 2 tabs for 3 days, take 1 tab for 3 days 4 Active cyclobenzaprine (FLEXERIL) 10 mg tablet Take 0.5-1 Tablets by mouth 2 times daily as needed for Muscle spasms. Medication may cause drowsiness, do not drive/operate machinery while taking 4 Active cetirizine (ZyrTEC) 10 mg tablet Take 1 Tablet by mouth at bedtime. 4 Active aspirin-acetami nophen-caffeine (EXCEDRIN MIGRAINE) 250-250-65 mg per tablet Take 1 tablet by mouth every 8 (eight) hours if needed. 4 Active albuterol HFA (PROAIR HFA ; PROVENTIL HFA ; VENTOLIN HFA) 90 mcg/actuation inhaler Inhale 2 Puffs into the lungs every 4 hours as needed for Cough or Shortness of Breath. 4 Active meclizine (ANTIVERT) 25 mg tablet Take 1 Tablet by mouth every 8 hours as needed (dizziness/vert igo). Medication may cause drowsiness, do not drive/operate machinery while taking 4 Active fluticasone propionate (FLONASE) 50 mcg/actuation nasal spray 1 [place] by Nasal route daily. 3 Active clonazePAM (KlonoPIN) 0.5 mg tablet Take 1 tablet (0.5 mg total) by mouth 2 (two) times a day if needed. 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 Gary lew [facility] then Dr. Shipman Treatment prior to coming to our group: Methotrexate - ineffective, nausea Enbrel, Humira, and Remicade: Either ineffective or on acceptable infusion reaction with the Remicade. September 2016 to about September 2017 hydroxychloroquine: Stopped because of visual disturbances. Tofacitinib November 2016 through July 2017 - lost effectiveness Orencia IV infusions November 2017 through January 2018- stopped because of hair thinning. Cimzia January 2018 see RA below Lumbar degenerative disc disease 07/08/2019 Frequent headaches 03/21/2017 Depression 03/20/2017 Hemorrhoids 03/20/2017 Rheumatoid arthritis 12/24/2016 Overview (04/02/2024): Onset age 6 DR[address] Gary lew [facility] then Dr. Shipman Treatment prior to coming to our group: Methotrexate - ineffective, nausea Enbrel, Humira, and Remicade: Either ineffective or unacceptable side effects. She had infusion reaction with the Remicade. September 2016 to about September 2017 hydroxychloroquine: Stopped because of visual disturbances. Tofacitinib November 2016 through July 2017 - lost effectiveness Orencia IV infusions November 2017 through January 2018- stopped because of hair thinning. Cimzia since January 2018 Actemra IV monthly in place of Cimzia since 06/03. Fibromyalgia 04/06/2016 Immunizations Name Administration Dates Next Due Influenza Quadravalent, MDCK , 0.5ml, preservative free (Flucelvax) 6mo and older 02/15/2021,02/12/2020,04/10/2019,2017 Influenza Quadravalent, MDCK , 0.5ml, with preservative (Flucelvax) 6mo and older 02/04/2023 Influenza trivalent, 0.5mL, preservative free (Fluarix; FluLaval; Fluzone) ages 6mo and older (Afluria) 3 years and older 04/06/2016 Tdap Tetanus diptheria acell ular pertussis (Boostrix; Adacel) 7yo and older 04/26/2023 Surgical History Surgery Date Site/Laterality Comments APPENDECTOMY PROCEDURE: HISTORICAL APPENDECTOMY SECTION 06/18/2015 PROCEDURE: HISTORICAL DELIVERY COLONOSCOPY 03/27/16 PROCEDURE: HISTORICAL COLONOSCOPY; COMMENT: hemorrhoids Medical History Medical History Date Comments Juvenile rheumatoid arthriti s ([facility]) 1997 DX:Juvenile rheumatoid arthr itis ([facility]); COMMENT: dr shipman Anxiety DX:Anxiety Childhood asthma DX:Childhood as thma Hemorrhoids 03/20/2017 DX:Hemorrhoids Depression 03/20/2017 DX:Depression Fibromyalgia 04/06/2016 DX:Fibromyalgia History of anemia 03/02/2016 DX:History of anemia Left shoulder pain 01/31/2017 DX:Left shoul divina pain 01/31/2017 DX:; CO MMENT: Patient says about 2 months; following with her OB Rheumatoid arthritis ([facility]) 12/24/2016 D X:Rheumatoid arthritis ([facility]) Dyslipidemia DX:Dyslipidemia Lumbar degenerative disc disease 07/08/2019 DX:Lumbar degenerative disc disease Family History Medical History Relation Name Comments Other cancer Maternal Grandfather Coronary artery disease Mother's side gra ndfather Relation Name Status Comments Maternal Grandfather Alive Mother's side Social History Tobacco Use Types Packs/Day Years Used Date Smoking Tobacco: Never Smokeless Tobacco: Never Alcohol Use Standard Drinks/Week Comments No 0 (1 standard drink = 0.6 oz pur e alcohol) Comments Unknown Sex and Gender Information Value Date Recorded Sex Assigned at Not on file Legal Sex Female 2:17 PM EST Gender Identity Not on file Sexual Orientation Not on file Obstetrics History Last Filed Vital Signs Vital Sign Reading Time Taken Comments Blood Pressure 116/84 12/12/2023 3:26 PM EDT Pulse 72 12/12/2023 3:26 PM EDT Temperature - - Respiratory Rate - - Oxygen Saturation - - Inhaled Oxygen Concentration - - Weight 75.3 kg (166 lb) 12/12/2023 3:26 PM EDT Height 149.9 cm (4' 11 ) 12/12/2023 3:26 PM EDT Body Mass Index 33.53 12/12/2023 3:26 PM EDT Plan of Treatment Health Maintenance Due Date Last Done Comments Hepatitis B Vaccines (1 of 3 - 19+ 3-dose series) 2009 Pneumococcal Vaccine: Pediatrics (0 to 5 Years) and At-Risk Patients (6 to 64 Years) (1 of 2 - PCV) 2009 Cervical Cancer Screening: Pap Smear 10/13/2020 10/13/2017 HIV Screening 03/14/2022 Social Influencers of Health Screening 03/14/2022 COVID-19 Vaccine ( season) 2023 07/05/2021, 06/14/2021 Influenza Vaccine (#1) 2023 , 02/15/2021, 02/12/2020, Additional history exists Depression Screening 12/11/2024 12/12/2023 DTaP,Tdap,and Td Vaccines (2 - Td or Tdap) 04/26/2033 04/26/2023 Hepatitis C Screening Completed 05/26/2018 HIB Vaccines Aged Out No longer eligi ble based on patient's age to complete this topic HPV Vaccines Aged Out No longer eligi ble based on patient's age to complete this topic Hepatitis A Vaccines Aged Out No long er eligible based on patient's age to complete this topic IPV Vaccines Aged Out No longer eligi ble based on patient's age to complete this topic MMR Vaccines Aged Out No longer eligi ble based on patient's age to complete this topic Meningococcal ACWY Vaccine Aged Out N o longer eligible based on patient's age to complete this topic Meningococcal B Vacine Aged Out No lo nger eligible based on patient's age to complete this topic RSV Immunization Patients Under 20 months Aged Out No longer eligible based on patient's age to complete this topic Varicella Vaccines Aged Out No longer eligible based on patient's age to complete this topic Procedures Procedure Name Priority Date/Time Associated Diagnosis Comments DEPRESSION SCREENING Routine 12/12/2023 HEPATITIS C SCREENING Routine 05/26/2018 PAP SMEAR Routine 10/13/2017 from Last 3 Months or Most Recently Relevant to Health Maintenance Results * Depression Screening (12/12/2023) Depression Screening Abstracted [facility] Provider HEALTH MAINTENANCE Final Result * Hepatitis C Screening (05/26/2018) Pathologist [facility] Hepatitis C Screening Abstracted [facility] Provider HEALTH MAINTENANCE Final Result * Pap Smear (10/13/2017) Pathologist [facility] Pap smear Normal, Abstracted [facility] Provider HEALTH MAINTENANCE Final Result from Last 3 Months or Most Recently Relevant to Health Maintenance Care Teams Mink Slicer Relationship Specialty Start Date End Date Dean Pollack MD [address] [place] [address] PCP - General Internal Medicine 06/21/21
--- NOTE | 2024-05-29 08:10 | A.OFFVIS_ITS ---
Vital Signs 05/29/24 08:17 Height 4 ft 11 in Weight 164 lb 0.383 oz BMI 33.1 BP 112/74 Blood Pressure Location Lt brachial Position Sitting Respiration 16 Pulse 94 Pulse Source Pulse Oximeter Pulse Oximetry (%) 98 Oxygen Delivery Method Room Air Intake Visit Reasons: discuss treatment plan Intake Note: Patient presents to discuss treatment plan. Allergies No Known Allergies Allergy (Verified 05/29/24 08:16) Medication List - Last Reconciled 05/29/24 by Louann Osman MD albuterol sulfate 90 mcg/actuation (Ventolin HFA) inhalation clonazepam 0.5 mg PO DAILY meclizine 25 mg PO TID PRN HPI Comments Details: Patient is a 33-year-old female with seronegative rheumatoid arthritis who presents today for follow up Interval History: Patient last seen 03/31/[address] Schneider. At that time she was doing well with no evidence of active synovitis. Today, She is complaining of orange urine. Occurred once after her last Actemra infusion. Also complaining of worsening sciatica after her Actemra infusion Rheumatologic History: Diagnosed with YULIANA at age 6. JANET+. No hx of uveitis and no TMJ involvement Tried methotrexate, enbrel, humira, remicade, hydroxychloroquine, orencia and cimzia with either decreased effect over time Actemra 2020 - now (effective) Current Rheumatology Medication(s): Actemra 4mg/kg every 4 weeks IV [facility] Medical History (Updated 05/29/24 @ 10:55 by Louann Osman MD) Juvenile rheumatoid arthritis Encounter for monitoring tocilizumab therapy Seronegative rheumatoid arthritis Asthma Anxiety History of anemia Hemorrhoid Frequent headaches Other intervertebral disc degeneration, lumbar region Surgical History History of 2 sections Hx of colonoscopy History of appendectomy Social History Alcohol intake: current Alcohol intake frequency: does not drink Patient Tobacco Use Status: Never used Tobacco e-Cigarette/Vaping Use: Never Used Current occupational status: unemployed Review of Systems Const Details: Review of Systems Constitutional: Denies fever, chills, weight loss ENT: Denies vision changes, eye pain or eye redness, dental caries, dry mouth GI: Denies nausea, vomiting, diarrhea, abdominal pain, change in BM Pulm: Denies SOB, PACHECO, hemoptysis, wheezing Cards: Denies chest pain, palpitations Skin: Denies Raynaud's, rash, nail changes, photosensitivity, 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 Well appearing and in no apparent painful distress HEENT Conjunctiva and sclera clear. ?Pupils equal round and reactive to light. ?No lymphadenopathy. ? CHEST/RESPIRATORY SYSTEM Normal respiratory effort and able to speak in complete sentences. ?Clear to auscultation bilaterally. ?No crackles, rales, rhonchi, wheezes heard. CARDIAC SYSTEM Regular rate and rhythm. ?S1 and S2 heard no murmurs. ?Radial pulses intact bilaterally MSK Hands: ?Good accounting representative strength bilaterally. No deformities noted. ?No synovitis noted to the MCPs, PIPs or DIPs. ?No tenderness to palpation of these joints. Wrists: Left wrists with reduced range of motion to flexion and extension with mild tenderness to palpation and synovial thickness. Right wrist without pain or tenderness to palpation full range of motion Elbows: Full range of motion without pain. No tenderness, weakness, swelling, increased warmth or erythema. Shoulders: Full range of motion without pain. No tenderness, weakness, swelling, increased warmth or erythema. Hips: Full range of motion without pain. Hip bursa: No tenderness to palpation Knees: ?Full range of motion. ?No tenderness, swelling, increased warmth or erythema.?No effusion or crepitations Ankles: Full range of motion. ?No tenderness, swelling, increased warmth or erythema.? Feet: ?Negative squeeze test. ?No tenderness to palpation or swelling of the MTPs. Tender points:?No tenderness to palpation of the bilateral trapezius, supraspinatus, greater trochanters, anterior costochondral junctions, bilateral gluteal areas, bilateral suboccipital muscle insertions SKIN Skin intact without rashes. Results Reviewed Results Reviewed: Laboratory Tests 04/09/24 05/08/24 10:04 08:49 WBC 6.6 RBC 4.67 Hgb 13.9 Hct 39.3 Plt Count 222 ESR 14 Sodium 139 Potassium 4.1 Chloride 109 H Carbon Dioxide 23 BUN 11 Creatinine 0.67 AST 41 H ALT 45 H Alkaline Phosphatase 96 C-Reactive Protein < 0.10 Assessment & Plan Assessment & Plan (1) Seronegative rheumatoid arthritis: Comment: dx with JRA at age 6 tried methotrexate, enbrel, humira, remicade, hydroxychloroquine, orencia and cimzia with either decreased effect over time Actemra infusion approx 2020 effective Code(s): M06.00 - Rheumatoid arthritis without rheumatoid factor, unspecified site Category: Medical Plan: #Seronegative RA Patient is a 33-year-old female with a history of juvenile rheumatoid arthritis who presents today for follow up. Currently in remission/low disease activity on examination With regards to her orange urine and sciatica symptoms post infusion we will check urinalysis after the infusion to make sure this is not blood mixed with a P making it look orange. And we will try Toradol 30 mg IV post infusion to see if that helps with her sciatica type pains. She has tried gabapentin in the past and it makes her very lightheaded and unable to take care of her young son who is disabled. Plan - Actemra 4mg/kg every 4 weeks - Update protocol to send to infusion center - Check UA with microscopy and urine culture after infusion - RTC 3 months - Labs before visit: CBC, CMP, ESR, CRP, hepatitis, T spot, triglycerides (2) Encounter for monitoring tocilizumab therapy: Code(s): Z51.81 - Encounter for therapeutic drug level monitoring; Z79.620 - half-way (current) use of immunosuppressive biologic Category: Medical Plan: #Long-term Use of Tocilizumab Discussed the risks and benefits of tocilizumab with the management of this patient's rheumatic condition. ? Benefits include decreased pain, improved mortality, improved quality of life Risks include LFT abnormalities, elevated triglycerides, GI perforations Contraindicated in a patient with history of diverticulitis Monitoring: ?CBC, CMP, triglycerides Plan I spent 30 minutes reviewing the record and labs, taking a history, examining the patient, discussing the treatment plan and documenting in the medical record Orders: Orders UA w Microscopic 06/08/24 M06.00 - Rheumatoid arthritis without rheumatoid factor, unspecified site, R82.998 - Other abnormal findings in urine Urine Culture 06/08/24 M06.00 - Rheumatoid arthritis without rheumatoid factor, unspecified site, R82.998 - Other abnormal findings in urine Erythrocyte Sedimentation Rate 3 Months M06.00 - Rheumatoid arthritis without rheumatoid factor, unspecified site, Z51.81 - Encounter for therapeutic drug level monitoring, Z79.620 - 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 Hepatitis A,B,C Profile 3 Months M06.00 - Rheumatoid arthritis without rheumatoid factor, unspecified site, Z51.81 - Encounter for therapeutic drug level monitoring, Z79.620 - 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
[2024-05-29 08:17] VITALS: BP 112/74; PULSE 94; RESP 16; O2SAT 98; BMI 33.1
== END 2024-05-29 08:39 | disposition home or self-care (01) ==
PROVIDERS: PCP Student in an Organized Health Care Education/Training Program; Visit Provider Student in an Organized Health Care Education/Training Program
DX: M06.00 Rheumatoid arthritis without rheumatoid factor, unspecified site (principal); Z51.81 Encounter for therapeutic drug level monitoring; Z79.620 Long term (current) use of immunosuppressive biologic
CPT/HCPCS: 99214; G2211

== ENCOUNTER → 2024-05-29 07:55 | Outpatient (BNVA) | payer OTHER, SELFPAY | PROVIDERS: PCP Student in an Organized Health Care Education/Training Program; Visit Provider Student in an Organized Health Care Education/Training Program | DX: M06.00 Rheumatoid arthritis without rheumatoid factor, unspecified site (principal); Z51.81 Encounter for therapeutic drug level monitoring; Z79.620 Long term (current) use of immunosuppressive biologic | CPT/HCPCS: 99212 ==

== ENCOUNTER 2024-08-24 09:07 | Outpatient (REF) | payer OTHER, SELFPAY ==
--- NOTE | ~2024-08-24 | US_ITS ---
EXAMINATION: US ABDOMEN COMPLETE WITH LIVER ELASTOGRAPHY HISTORY: R74.01 - Elevation of levels of liver transaminase levels TECHNIQUE: Real-time grayscale ultrasound imaging of the abdomen was performed and images were reviewed. COMPARISON: There are no prior studies for comparison. FINDINGS: Liver: The right lobe of the liver measures 15.4 cm in size. The left lobe of the liver measures 11.9 cm in size. The liver demonstrates normal homogeneous echotexture. No focal mass or intrahepatic biliary ductal dilatation is identified. There is normal hepatopedal flow in the portal vein. Ultrasound elastography of the liver was performed with 10 separate measurements of the liver parenchyma with the patient in the supine position. Measurements were obtained approximately 2 cm below Giselle's capsule and perpendicular to the capsule. Images are of satisfactory quality. The median shear wave velocity is 1.47 m/s. The interquartile range/median (IQR/median) is 0.14. Gallbladder and biliary tree: The gallbladder is unremarkable, without evidence of calculi, wall thickening, or pericholecystic fluid. There is no sonographic Mcdaniels sign. The common bile duct is normal in caliber measuring 2 mm. Kidneys: The right kidney measures 9.8 cm in length. The left kidney measures 8.8 cm in length. The kidneys are unremarkable, without evidence of masses, hydronephrosis, or calculi. Pancreas: The pancreatic head, neck, and body are unremarkable. The pancreatic tail is obscured by bowel gas. Spleen: The spleen is normal in size and contour, measuring 11.6 cm in length. Abdominal aorta and inferior vena cava: The visualized portions of the abdominal aorta and inferior vena cava are normal in caliber. There is no free fluid in the abdomen. US/US abdomen comp w elastography IMPRESSION: Unremarkable abdominal ultrasound. The median shear wave velocity in the liver is 1.47 m/s, corresponding to a median liver stiffness of 6.61 kPa. The IQR/median value is 0.14. This is indicative of a quality data set. Findings are indicative of a low elastography value which rules out advanced chronic liver disease in asymptomatic patients. REFERENCE: Society of Radiologists in Ultrasound Liver Stiffness Thresholds (2020): LIVER STIFFNESS THRESHOLDS: *Shear wave velocity less than 1.3 m/s (Liver Stiffness equal or less than 5 kPa): High probability of being normal. *Shear wave velocity less than 1.7 m/s (Liver Stiffness less than 9 kPa): In the absence of other known clinical signs, rules out compensated advanced chronic liver disease. *Shear wave velocity between 1.7-2.1 m/s (Liver Stiffness 9-13 kPa): Suggestive of compensated advanced chronic liver disease but need further test for confirmation. *Shear wave velocity between 2.1-2.4 m/s (Liver Stiffness 13-17 kPa): Rules in compensated advanced chronic liver disease. *Shear wave velocity greater than 2.4 m/s (Liver Stiffness over 17 kPa): Suggestive of clinically significant portal hypertension. QUALITY OF DATA SET: SIGNIFICANT CHANGE FROM PRIOR EXAM: Significant change if liver stiffness measurement is 10% or greater from prior exam. OTHER CONSIDERATIONS: The stage of liver fibrosis may be overestimated in the setting of acute hepatitis, liver inflammation, elevated liver function tests, hepatic vascular congestion, obstructive cholestasis, non-fasting state, and infiltrative diseases such as amyloidosis and lymphoma. In some patients with NAFLD, the liver stiffness thresholds for compensated advanced chronic liver disease may be lower. In causes other than viral hepatitis and NAFLD, liver stiffness thresholds are not well established. Electronically signed by: Jeremías Gama MD 08/24/2024 10:11 AM EDT
--- OUTSIDE RECORDS SUMMARY | 2024-08-24 09:15 | XMS_ITS | Clinical Summary ---
Author Organization [facility] ity Address [address] [place] [address] Care Team Providers Care Rooming House Operator Name Role Phone Dean Pollack MD Primary [...] propionate (FLONASE) 50 mcg/actuation nasal spray 1 [place] by Nasal route daily. 3 Active clonazePAM (KlonoPIN) 0.5 mg tablet Take 1 tablet (0.5 mg total) by mouth 2 (two) times a day if needed. Max Daily Amount: 1 mg 3 Active triamcinolone (KENALOG) 0.1 % ointment To affected area 2-3 times daily 1 Active Active Problems Problem Noted Date Diagnosed Date Anxiety 04/02/2024 Childhood asthma 04/02/2024 Juvenile rheumatoid arthritis ([facility] V24, [facility]/ [facility] V28) 04/02/2024 Overview (04/02/2024): Onset age 6 DR. Vega at [facility] then Dr. Shipman Treatment prior to coming [...] 03/21/2017 Depression 03/20/2017 Hemorrhoids 03/20/2017 Rheumatoid arthritis ([facility] V24, [facility] V28) 12/24/2016 Overview (04/02/2024): Onset age 6 DR. Gary lew [facility] then Dr. Shipman Treatment prior to coming [...] History Date Comments Juvenile rheumatoid arthriti s ([facility] V24, [facility] V28) 1997 DX:Juvenile rheumatoid arth ritis ([facility]); COMMENT: dr shipman Anxiety DX:Anxiety Childhood asthma DX:Childhood as thma Hemorrhoids 03/20/2017 DX:Hemorrhoids Depression 03/20/2017 DX:Depression Fibromyalgia 04/06/2016 DX:Fibromyalgia History of anemia 03/02/2016 DX:History of anemia Left shoulder pain 01/31/2017 DX:Left shoul divina pain 01/31/2017 DX:; CO MMENT: Patient says about 2 months; following with her OB Rheumatoid arthritis ([facility]/ C V24, [facility] V28) 12/24/2016 DX:Rheumatoid arthritis ([facility] ) Dyslipidemia DX:Dyslipidemia Lumbar degenerative disc disease 07/08/2019 [...] COVID-19 Vaccine ( season) 2023 07/05/2021, 06/14/2021 Depression Screening 12/11/2024 12/12/2023 Influenza Vaccine (Season Ended) 2024 02/04/2023, 02/15/2021, 02/12/2020, Additional history exists DTaP,Tdap,and Td Vaccines (2 - Td or [...] age to complete this topic Meningococcal B Vaccine Aged Out No l onger eligible based on patient's age to complete this topic RSV Immunization Patients Under 20 months Aged Out No longer eligible based on patient's age to complete this topic Varicella Vaccines Aged Out No longer eligible based on patient's age to complete this topic Procedures Procedure Name Priority Date/Time Associated Diagnosis Comments HM DEPRESSION SCREENING Routine 12/12/2023 HEPATITIS C SCREENING Routine 05/26/2018 PAP SMEAR Routine 10/13/2017 from Last 3 Months or Most Recently Relevant to Health Maintenance Results * Depression Screening (12/12/2023) Depression Screening Abstracted Historical Provider HEALTH MAINTENANCE Final Result * Hepatitis C Screening (05/26/2018) Hepatitis C Screening Abstracted [facility] Provider HEALTH MAINTENANCE Final Result * Pap Smear (10/13/2017) Pap smear Normal, Abstracted Historical Provider HEALTH MAINTENANCE Final Result from Last 3 Months or Most Recently Relevant to Health Maintenance Care Teams Rooming House Operator Relationship Specialty Start Date End Date Dean Pollack MD [address] [place] [address] PCP - General Internal Medicine 06/21/21
== END 2024-08-24 09:08 | disposition home or self-care (01) ==
LOC: HO.US 09:07
PROVIDERS: Visit Provider Student in an Organized Health Care Education/Training Program
DX: R74.01 Elevation of levels of liver transaminase levels (principal)
CPT/HCPCS: 76700; 76981

== ENCOUNTER → 2024-08-24 09:10 | Outpatient (BNV) | payer OTHER, SELFPAY | PROVIDERS: Visit Provider Radiology Diagnostic Radiology | DX: R74.01 Elevation of levels of liver transaminase levels (principal) | CPT/HCPCS: 76700; 76981 ==

== ENCOUNTER 2024-09-08 08:51 | Outpatient (AMB) | payer OTHER, SELFPAY ==
--- NOTE | 2024-09-08 08:51 | MHC.OFFVIS ---
Vital Signs 09/08/24 08:56 Height 4 ft 11 in Weight 163 lb 5.8 oz BMI 33.0 BP 124/90 H Blood Pressure Location Rt brachial Position Sitting Respiration 16 Pulse 82 Pulse Source Pulse Oximeter Pulse Oximetry (%) 96 Oxygen Delivery Method Room Air Intake Visit Reasons: 3 months Intake Note: Patient presents for 3 months follow up. Allergies No Known Allergies Allergy (Verified 09/08/24 08:55) Medication List - Last Reconciled 09/08/24 by Louann Osman MD albuterol sulfate 90 mcg/actuation (Ventolin HFA) inhalation clonazepam 0.5 mg PO DAILY meclizine 25 mg PO TID PRN tocilizumab 4mg/kg intravenously every 4 weeks; HPI Comments Details: Patient is a 33-year-old female with seronegative rheumatoid arthritis who presents today for follow up Interval History: Patient last seen 05/29/2024 with me. At that time she was complaining of orange urine her Actemra infusion. Also complained of worsening sciatica after her Actemra infusion Exam was consistent with low disease activity and her medications were continued. Recommended check UA if and when the orange urine occurs. Started Toradol 30mg IV post infusion to see if this would help with her sciatica type symptoms Today, Doing okay Still complaining of her sciatica pains No further color changes to urine Son going for G tube procedure this week Rheumatologic History: Diagnosed with YULIANA at age 6. JANET+. No hx of uveitis and no TMJ involvement Tried methotrexate, enbrel, humira, remicade, hydroxychloroquine, orencia and cimzia with either decreased effect over time Actemra 2020 - now (effective) Current Rheumatology Medication(s): Actemra 4mg/kg every 4 weeks IV [facility] Medical History (Updated 05/29/24 @ 10:55 by Louann Osman MD) Juvenile rheumatoid arthritis Encounter for monitoring tocilizumab therapy Seronegative rheumatoid arthritis Asthma Anxiety History of anemia Hemorrhoid Frequent headaches Other intervertebral disc degeneration, lumbar region Surgical History History of 2 sections Hx of colonoscopy History of appendectomy Social History Alcohol intake: current Alcohol intake frequency: does not drink Patient Tobacco Use Status: Never used Tobacco e-Cigarette/Vaping Use: Never Used Current occupational status: unemployed Review of Systems Const Details: Review of Systems Constitutional: Denies fever, chills, weight loss ENT: Denies vision changes, eye pain or eye redness, dental caries, dry mouth GI: Denies nausea, vomiting, diarrhea, abdominal pain, change in BM Pulm: Denies SOB, PACHECO, hemoptysis, wheezing Cards: Denies chest pain, palpitations Skin: Denies Raynaud's, rash, nail changes, photosensitivity, 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 Well appearing and in no apparent painful distress HEENT Conjunctiva and sclera clear. ?Pupils equal round and reactive to light. ?No lymphadenopathy. ? CHEST/RESPIRATORY SYSTEM Normal respiratory effort and able to speak in complete sentences. ?Clear to auscultation bilaterally. ?No crackles, rales, rhonchi, wheezes heard. CARDIAC SYSTEM Regular rate and rhythm. ?S1 and S2 heard no murmurs. 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 No deformities noted. ?No synovitis noted to the MCPs, PIPs or DIPs. ?No tenderness to palpation of these joints. Wrists: Left wrists with reduced range of motion to flexion and extension with mild tenderness to palpation and synovial thickness. Right wrist without pain or tenderness to palpation full range of motion Elbows: Full range of motion without pain. No tenderness, weakness, swelling, increased warmth or erythema. Shoulders: Full range of motion without pain. No tenderness, weakness, swelling, increased warmth or erythema. Hips: Full range of motion without pain. Hip bursa: No tenderness to palpation Knees: ?Full range of motion. ?No tenderness, swelling, increased warmth or erythema.?No effusion or crepitations Ankles: Full range of motion. ?No tenderness, swelling, increased warmth or erythema.? Feet: ?Negative squeeze test. ?No tenderness to palpation or swelling of the MTPs. Tender points:?No tenderness to palpation of the bilateral trapezius, supraspinatus, greater trochanters, anterior costochondral junctions, bilateral gluteal areas, bilateral suboccipital muscle insertions SKIN Skin intact without rashes. Results Reviewed Results Reviewed: Laboratory Tests 04/09/24 06/08/24 07/06/24 10:04 10:42 10:29 WBC RBC Hgb Hct Plt Count ESR 14 Sodium Potassium Chloride Carbon Dioxide BUN Creatinine AST ALT Alkaline Phosphatase C-Reactive Protein < 0.10 Triglycerides 156 H 147 Cholesterol 206 H 212 H LDL Cholesterol, Calc 128 H 133 H HDL Cholesterol 47 50 08/17/24 10:22 WBC 5.7 RBC 4.42 Hgb 13.1 Hct 38.7 Plt Count 266 ESR Sodium 139 Potassium 4.0 Chloride 108 Carbon Dioxide 25 BUN 13 Creatinine 0.67 AST 29 ALT 32 H Alkaline Phosphatase 85 C-Reactive Protein Triglycerides Cholesterol LDL Cholesterol, Calc HDL Cholesterol Assessment & Plan Assessment & Plan (1) Seronegative rheumatoid arthritis: Comment: dx with JRA at age 6 tried methotrexate, enbrel, humira, remicade, hydroxychloroquine, orencia and cimzia with either decreased effect over time Actemra infusion approx 2020 effective Code(s): M06.00 - Rheumatoid arthritis without rheumatoid factor, unspecified site Category: Medical Plan: #Seronegative RA Patient is a 33-year-old female with a history of juvenile rheumatoid arthritis who presents today for follow up. Currently in remission/low disease activity on examination with persistent TTP of the right wrist No longer seeing the orange urine after Tocilizumab infusion. 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 ? Benefits include decreased pain, improved mortality, improved quality of life Risks include LFT abnormalities, elevated triglycerides, GI perforations Contraindicated in a patient with history of diverticulitis Monitoring: ?CBC, CMP, triglycerides Plan I spent 30 minutes reviewing the record and labs, taking a history, examining the patient, discussing the treatment plan and documenting in the medical record Orders: Orders C Reactive Protein 4 Months M06.00 - Rheumatoid arthritis without rheumatoid factor, unspecified site Erythrocyte Sedimentation Rate 4 Months M06.00 - Rheumatoid arthritis without rheumatoid factor, unspecified site Complete Blood Count Auto Diff 4 Months M06.00 - Rheumatoid arthritis without rheumatoid factor, unspecified site Comprehensive Met. Panel 4 Months M06.00 - Rheumatoid arthritis without rheumatoid factor, unspecified site Lipid Panel 4 Months M06.00 - Rheumatoid arthritis without rheumatoid factor, unspecified site Hepatitis A,B,C Profile 4 Months M06.00 - Rheumatoid arthritis without rheumatoid factor, unspecified site T Spot TB 4 Months M06.00 - Rheumatoid arthritis without rheumatoid factor, unspecified site Coding Level of Care Code Est Pt Level 4 (23629) Complex EM visit Add On G2211 Diagnoses Seronegative rheumatoid arthritis M06.00 Encounter for monitoring tocilizumab therapy Z51.81; Z79.620
[2024-09-08 08:56] VITALS: BP 124/90; PULSE 82; RESP 16; O2SAT 96; BMI 33.0
== END 2024-09-08 09:18 | disposition home or self-care (01) ==
LOC: HO.RHE 08:51
PROVIDERS: Visit Provider Student in an Organized Health Care Education/Training Program
DX: M06.00 Rheumatoid arthritis without rheumatoid factor, unspecified site (principal); Z51.81 Encounter for therapeutic drug level monitoring; Z79.620 Long term (current) use of immunosuppressive biologic
CPT/HCPCS: 99214; G2211

== ENCOUNTER → 2024-09-08 08:51 | Outpatient (BNVA) | payer OTHER, SELFPAY | PROVIDERS: Visit Provider Student in an Organized Health Care Education/Training Program | DX: M06.00 Rheumatoid arthritis without rheumatoid factor, unspecified site (principal); Z51.81 Encounter for therapeutic drug level monitoring; Z79.620 Long term (current) use of immunosuppressive biologic | CPT/HCPCS: 99212 ==

== ENCOUNTER 2024-10-22 12:13 | Outpatient (AMB) | payer OTHER, SELFPAY ==
[2024-10-22 12:33] VITALS: BP 122/64; PULSE 91; O2SAT 98; BMI 32.8
--- NOTE | 2024-10-22 12:33 | A.OFFVIS_ITS ---
Vital Signs 10/22/24 12:33 Height 4 ft 11 in Weight 162 lb 4.163 oz BMI 32.8 BP 122/64 Blood Pressure Location Lt brachial Position Sitting Pulse 91 Pulse Source Pulse Oximeter Pulse Oximetry (%) 98 Oxygen Delivery Method Room Air Intake Visit Reasons: RA Intake Note: Patient presents for RA follow up today. Allergies No Known Allergies Allergy (Verified 10/22/24 12:36) Medication List - Last Reconciled 10/22/24 by Louann Osman MD albuterol sulfate 90 mcg/actuation (Ventolin HFA) inhalation lorazepam 0.5 mg PO DAILY PRN meclizine 25 mg PO TID PRN riboflavin (vitamin B2) 400 mg PO DAILY sumatriptan succinate mg PO tocilizumab 4mg/kg intravenously every 4 weeks; HPI Comments Details: Patient is a 33-year-old female with seronegative rheumatoid arthritis who presents today for follow up Interval History: Patient last seen 09/08/24 with me. - Doing okay - Still complaining of her sciatica pains - No further color changes to urine Today, - Doing okay - Still having sciatica pains - Migraines are worse, started on sumitriptan - Pulled a muscle and started muscle relaxer for that which helps but she does not like the after effects - Back and neck pain. left wrist pain Rheumatologic History: Diagnosed with YULIANA at age 6. JANET+. No hx of uveitis and no TMJ involvement Tried methotrexate, enbrel, humira, remicade, hydroxychloroquine, orencia and cimzia with either decreased effect over time Actemra 2020 - now (effective) Current Rheumatology Medication(s): Actemra 4mg/kg every 4 weeks IV [facility] Medical History (Updated 05/29/24 @ 10:55 by Louann Osman MD) Juvenile rheumatoid arthritis Encounter for monitoring tocilizumab therapy Seronegative rheumatoid arthritis Asthma Anxiety History of anemia Hemorrhoid Frequent headaches Other intervertebral disc degeneration, lumbar region Surgical History History of 2 sections Hx of colonoscopy History of appendectomy Social History Alcohol intake: current Alcohol intake frequency: does not drink Patient Tobacco Use Status: Never used Tobacco e-Cigarette/Vaping Use: Never Used Current occupational status: unemployed Review of Systems Const Details: Review of Systems Constitutional: Denies fever, chills, weight loss ENT: Denies vision changes, eye pain or eye redness, dental caries, dry mouth GI: Denies nausea, vomiting, diarrhea, abdominal pain, change in BM Pulm: Denies SOB, PACHECO, hemoptysis, wheezing Cards: Denies chest pain, palpitations Skin: Denies Raynaud's, rash, nail changes, photosensitivity, TILE MACHINE OPERATOR: Denies headaches, weakness, paresthesias, recurrent falls MSK: as per HPI All other systems reviewed and are unremarkable except noted above Physical Exam Vital Signs: Last Vital Signs Pulse 91 10/22/24 12:33 BP 122/64 10/22/24 12:33 Pulse Ox 98 10/22/24 12:33 Oxygen Delivery Method Room Air 10/22/24 12:33 BMI result Body Mass Index 32.8 Vital signs reviewed Physical Examination CONSTITUITIONAL Patient alert and cooperative. Well appearing and in no apparent painful distress HEENT Conjunctiva and sclera clear. ?Pupils equal round and reactive to light. ?No lymphadenopathy. ? CHEST/RESPIRATORY SYSTEM Normal respiratory effort and able to speak in complete sentences. ?Clear to auscultation bilaterally. ?No crackles, rales, rhonchi, wheezes heard. CARDIAC SYSTEM Regular rate and rhythm. ?S1 and S2 heard no murmurs. ?Radial pulses intact bilaterally MSK Hands: ?Good intermediate designer strength bilaterally. No deformities noted. ?No synovitis noted to the MCPs, PIPs or DIPs. ?No tenderness to palpation of these joints. Wrists: Left wrists with reduced range of motion to flexion and extension with mild tenderness to palpation and synovial thickness. Right wrist without pain or tenderness to palpation full range of motion Elbows: Full range of motion without pain. No tenderness, weakness, swelling, increased warmth or erythema. Shoulders: Full range of motion without pain. No tenderness, weakness, swelling, increased warmth or erythema. Hip bursa: No tenderness to palpation Knees: ?Full range of motion. ?No tenderness, swelling, increased warmth or erythema.?No effusion or crepitations Ankles: Full range of motion. ?No tenderness, swelling, increased warmth or erythema.? Feet: ?Negative squeeze test. ?No tenderness to palpation or swelling of the MTPs. Tender points:?No tenderness to palpation of the bilateral trapezius, supraspinatus, greater trochanters, anterior costochondral junctions, bilateral gluteal areas, bilateral suboccipital muscle insertions TTP of the C spine midline SKIN Skin intact without rashes. Results Reviewed Results Reviewed: Laboratory Tests 04/09/24 07/06/24 09/11/24 10:04 10:29 09:20 WBC 6.4 RBC 4.48 Hgb 13.4 Hct 38.2 Plt Count 204 ESR 14 Sodium 141 Potassium 4.2 Chloride 109 H Carbon Dioxide 25 BUN 11 Creatinine 0.60 AST 23 ALT 24 C-Reactive Protein < 0.10 Triglycerides 147 Cholesterol 212 H LDL Cholesterol, Calc 133 H Laboratory Tests 07/08/23 11:38 Hepatitis A IgM Ab Nonreactive Hep Bs Antigen Negative Hep Bs Antibody NONREACTIVE Hep B Core Total Ab Nonreactive Hepatitis C Ab (EIA) Nonreactive TB Test (T-Spot) Com Negative Assessment & Plan Assessment & Plan (1) Seronegative rheumatoid arthritis: Comment: dx with JRA at age 6 tried methotrexate, enbrel, humira, remicade, hydroxychloroquine, orencia and cimzia with either decreased effect over time Actemra infusion approx 2020 effective Code(s): M06.00 - Rheumatoid arthritis without rheumatoid factor, unspecified site Category: Medical Plan: #Seronegative RA Patient is a 33-year-old female with a history of juvenile rheumatoid arthritis who presents today for follow up. Currently in remission/low disease activity on examination with persistent TTP of the left wrist Can consider increasing Actemra dose Add meloxicam for degenerative joint disease Plan - Actemra 4mg/kg every 4 weeks - Meloxicam 15mg daily prn - Labs today: CBC, CMP, ESR, CRP, Hepatitis panel and T spot, lipid panel - RTC 4 months - Labs before visit: CBC, CMP, ESR, CRP, lipid panel (2) Encounter for monitoring tocilizumab therapy: Code(s): Z51.81 - Encounter for therapeutic drug level monitoring; Z79.620 - [facility] (current) use of immunosuppressive biologic Category: Medical Plan: #Long-term Use of Tocilizumab Discussed the risks and benefits of tocilizumab with the management of this patient's rheumatic condition. ? Benefits include decreased pain, improved mortality, improved quality of life Risks include LFT abnormalities, elevated triglycerides, GI perforations Contraindicated in a patient with history of diverticulitis Monitoring: ?CBC, CMP, triglycerides Plan I spent 30 minutes reviewing the record and labs, taking a history, examining the patient, discussing the treatment plan and documenting in the medical record Orders: Orders Complete Blood Count Auto Diff Today M06.00 - Rheumatoid arthritis without rheumatoid factor, unspecified site C Reactive Protein Today M06.00 - Rheumatoid arthritis without rheumatoid factor, unspecified site Erythrocyte Sedimentation Rate Today M06.00 - Rheumatoid arthritis without rheumatoid factor, unspecified site T Spot TB Today M06.00 - Rheumatoid arthritis without rheumatoid factor, unspecified site C Reactive Protein 4 Months M06.00 - Rheumatoid arthritis without rheumatoid factor, unspecified site Lipid Panel 4 Months M06.00 - Rheumatoid arthritis without rheumatoid factor, unspecified site Comprehensive Met. Panel Today M06.00 - Rheumatoid arthritis without rheumatoid factor, unspecified site Hepatitis A,B,C Profile Today M06.00 - Rheumatoid arthritis without rheumatoid factor, unspecified site Lipid Panel Today M06.00 - Rheumatoid arthritis without rheumatoid factor, unspecified site Complete Blood Count Auto Diff 4 Months M06.00 - Rheumatoid arthritis without rheumatoid factor, unspecified site Comprehensive Met. Panel 4 Months M06.00 - Rheumatoid arthritis without rheumatoid factor, unspecified site Erythrocyte Sedimentation Rate 4 Months M06.00 - Rheumatoid arthritis without rheumatoid factor, unspecified site Medications: New meloxicam 15 mg PO DAILY 30 tabs 0RF M06.00 - Rheumatoid arthritis without rheumatoid factor, unspecified site Coding Level of Care Code Est Pt Level 4 (15719) Complex EM visit Add On G2211 Diagnoses Seronegative rheumatoid arthritis M06.00 Encounter for monitoring tocilizumab therapy Z51.81; Z79.620
--- OUTSIDE RECORDS SUMMARY | 2024-10-22 12:33 | XMS_ITS | Clinical Summary ---
Author Organization [facility] [address] [place] [address] [place] [phone] Phone Care Team Providers Care Digital Community Manager Name Role Phone Dean Pollack MD Primary Care Provider Allergies Active Allergy Reactions Criticality Noted Date Comments Adalimumab Anaphylaxis High 04/06/2016 Hydroxychloroquine Sulfate Other 8 Vision loss Infliximab 01/06/2017 Medications cyclobenzaprin e (FLEXERIL) 10 mg tablet Take 0.5-1 Tablets by mouth 2 times daily as needed for Muscle spasms. Medication may cause drowsiness, do not drive/operate machinery while taking 4 Active cetirizine (ZyrTEC) 10 mg tablet Take 1 Tablet by mouth at bedtime. 4 Active albuterol HFA (PROAIR HFA ; PROVENTIL HFA ; VENTOLIN HFA) 90 mcg/actuation inhaler Inhale 2 Puffs into the lungs every 4 hours as needed for Cough or Shortness of Breath. 4 Active fluticasone propionate (FLONASE) 50 mcg/actuation nasal spray 1 [place] by Nasal route daily. 3 Active clonazePAM (KlonoPIN) 0.5 mg tablet Take 1 tablet (0.5 mg total) by mouth 2 (two) times a day if needed. Max Daily Amount: 1 mg 3 Active triamcinolone (KENALOG) 0.1 % ointment To affected area 2-3 times daily 1 Active meclizine (ANTIVERT) 25 mg tablet Take 1 tablet (25 mg total) by mouth 3 (three) times a day if needed for dizziness. 60 tablet 2 5 Active magnesium oxide (MAG-OX) 400 mg magnesium tablet Take 1 tablet (400 mg total) by mouth 1 (one) time each day. 90 tablet 1 5 Active riboflavin (VITAMIN B2) 400 mg tablet Take 1 tablet (400 mg total) by mouth 1 (one) time each day. 90 tablet 1 5 Active SUMAtriptan (IMITREX) 50 mg tablet Take 1 tablet (50 mg total) by mouth 1 (one) time if needed for migraine. May repeat dose once in 2 hours if no relief. Do not exceed 2 doses in 24 hours. 9 tablet 5 5 09/29/19 26 Active aspirin-acetam inophen-caffei ne (EXCEDRIN MIGRAINE) 250-250-65 mg per tablet Take 1 tablet by mouth every 8 (eight) hours if needed for headaches. 60 tablet 1 5 Active predniSONE (DELTASONE) 20 mg tablet Take 3 tabs for 3 days, take 2 tabs for 3 days, take 1 tab for 3 days 4 09/29/19 25 Discontinu ed(Therapy completed) aspirin-acetam inophen-caffei ne (EXCEDRIN MIGRAINE) 250-250-65 mg per tablet Take 1 tablet by mouth every 8 (eight) hours if needed. 4 09/29/19 25 Discontinu ed(Reorder ) meclizine (ANTIVERT) 25 mg tablet Take 1 Tablet by mouth every 8 hours as needed (dizziness/reed tigo). Medication may cause drowsiness, do not drive/operate machinery while taking 4 09/29/19 25 Discontinu ed(Reorder ) Active Problems Problem Noted Date Diagnosed Date Iron deficiency anemia 09/28/2024 Anxiety and depression 04/02/2024 Childhood asthma 04/02/2024 Juvenile rheumatoid arthritis ([facility]/HCC V24, CMS/ HCC V28) 04/02/2024 Overview (04/02/2024): Onset age 6 DR. Vega at [facility] then Dr. Shipman Treatment prior to coming [...] 03/21/2017 Depression 03/20/2017 Hemorrhoids 03/20/2017 Rheumatoid arthritis ([facility] V24, [facility] V28) 12/24/2016 Overview (04/02/2024): Onset age 6 DR. Vega at [facility] then Dr. Shipman Treatment prior to coming [...] place of Cimzia since 06/03. Fibromyalgia 04/06/2016 Encounters Date Type Department Care Team Description 09/28/2024 9:30 AM EDT Office Visit Adult Medicine [address] [phone] Dean Pollack MD Vertiginous migraine (Primary Dx); Iron deficiency anemia, unspecified iron deficiency anemia type; Juvenile rheumatoid arthritis ([facility] V24, [facility] V28); Anxiety and depression; Mixed hyperlipidemia 09/28/2024 Telephone Adult Medicine [address] [phone] Dean Pollack MD 09/25/2024 Telephone Adult Medicine [address] [phone] Dean Pollack MD Vertigo from Last 3 Months Immunizations Name Administration Dates Next Due Influenza [...] History Date Comments Juvenile rheumatoid arthriti s ([facility] V24, [facility] V28) 1997 DX:Juvenile rheumatoid arth ritis ([facility]); COMMENT: dr shipman Anxiety DX:Anxiety Childhood asthma DX:Childhood as thma Hemorrhoids 03/20/2017 DX:Hemorrhoids Depression 03/20/2017 DX:Depression Fibromyalgia 04/06/2016 DX:Fibromyalgia History of anemia 03/02/2016 DX:History of anemia Left shoulder pain 01/31/2017 DX:Left shoul divina pain 01/31/2017 DX:; CO MMENT: Patient says about 2 months; following with her OB Rheumatoid arthritis ([facility]/ C V24, [facility] V28) 12/24/2016 DX:Rheumatoid arthritis ([facility] ) Dyslipidemia DX:Dyslipidemia Lumbar degenerative disc disease 07/08/2019 DX:Lumbar degenerative disc disease Family History Medical History Relation Name Comments Other cancer Maternal Grandfather Coronary artery disease Mother's side gra ndfather Relation Name Status Comments Maternal Grandfather Alive Mother's side Social History Tobacco Use Types Packs/Day Years Used Date Smoking Tobacco: Never Smokeless Tobacco: Never Tobacco Cessation:Counseling Given: Not Answered Alcohol Use Standard Drinks/Week Comments No 0 (1 standard drink = 0.6 oz pur e alcohol) Comments No Sex and Gender Information Value Date Recorded Sex Assigned at Not on file Legal Sex Female 2:17 PM EST Gender Identity Not on file Sexual Orientation Not on file Obstetrics History Last Filed Vital Signs Vital Sign Reading Time Taken Comments Blood Pressure 106/72 09/28/2024 9:19 AM EDT Pulse 88 09/28/2024 9:19 AM EDT Temperature 36.6 C (97.8 F) 09/28/2024 9:19 AM EDT Respiratory Rate 16 09/28/2024 9:19 AM EDT Oxygen Saturation - - Inhaled Oxygen Concentration - - Weight 75.3 kg (166 lb) 12/12/2023 3:26 PM EDT Height 149.9 cm (4' 11 ) 09/28/2024 9:19 AM EDT Body Mass Index 33.53 12/12/2023 3:26 PM EDT Plan of Treatment Upcoming Encounters Date Type Department Care Team (Late st Contact Info) Description 01/06/2025 3:00 PM EDT Consult [facility] [address] [place] [phone] Meseret Andrade PA [address] [place] [address] 03/30/2025 3:45 PM EST Office Visit Adult Medicine [address] [phone] Dean Pollack MD [address] [place] [id number] Health Maintenance Due Date Last Done Comments Hepatitis B Vaccines (1 of 3 - 19+ 3-dose series) 2009 Pneumococcal Vaccine: Pediatrics (0 to 5 Years) and At-Risk Patients (6 to 49 Years) (1 of 2 - PCV) 2009 Cervical Cancer Screening: Pap Smear 10/13/2020 10/13/2017 HIV Screening 03/14/2022 Social Influencers of Health Screening 03/14/2022 Cholesterol Screening (Lipid Panel) 03/20/2023 03/20/2018 COVID-19 Vaccine ( season) 2023 07/05/2021, 06/14/2021 Depression Screening 12/11/2024 12/12/2023 Influenza Vaccine (#1) 2024 , 02/15/2021, 02/12/2020, Additional history exists DTaP,Tdap,and Td [...] Routine 12/12/2023 HEPATITIS C SCREENING Routine 05/26/2018 LIPID PANEL Routine 03/20/2018 PAP SMEAR Routine 10/13/2017 from Last 3 Months or Most Recently Relevant to Health Maintenance Results * Depression Screening (12/12/2023) Pathologist On license of [facility] Depression Screening Abstracted Historical Provider HEALTH MAINTENANCE Final Result * Hepatitis C Screening (05/26/2018) Pathologist On license of [facility] Hepatitis C Screening Abstracted us Historical Provider HEALTH MAINTENANCE Final Result * (ABNORMAL) Lipid panel (03/20/2018) Pathologist [facility] LDL/HDL Ratio 4 0 - 4 Triglycerides 129 0 - 150 mg/dL Cholesterol 240(A) 0 - 200 mg/dL HDL 62 >=40 mg/dL LDL Cholesterol 153(A) 0 - 100 mg/dL Blood Venous blood specimen / Unknown Historical Provider LAB BLOOD ORDERABLES Xiomara l Result * Pap Smear (10/13/2017) Pap smear Normal, Abstracted Historical Provider HEALTH MAINTENANCE Final Result from Last 3 Months or Most Recently Relevant to Health Maintenance Insurance Care Teams Digital Community Manager Relationship Specialty Start Date End Date Dean Pollack MD [address] [place] [address] PCP - General Internal Medicine 06/21/21
--- OUTSIDE RECORDS SUMMARY | 2024-10-22 12:33 | XMS_ITS | Encounter Summary ---
[facility] Address [address] [place] [address] Care Team Providers Care Computer Tech Name Role Phone Bambi Lin DO Primary Care Pro vider Darrian Vivas MD Primary Care Provider Dean Ignacio Primary Care Provider [phone] Encounter Details Date Type Department Care Team Description 09/25/2017 Pt. Non Urgent Medic al Question Rheumatology - [address] [address] Colette Cruz DO Social History Tobacco Use Types Packs/Day Years Used Date Smoking Tobacco: Never Smokeless Tobacco: Never Alcohol Use Standard Drinks/Week Comments No 0 (1 standard drink = 0.6 oz pur e alcohol) Sex Assigned at Date Recorded Not on file Job Start Date Occupation Industry Not on file Not on file Not on file documented as of this encounter Progress Notes * Marilu MartinsP.NInes - 09/25/2017 10:17 AM EDTFrom: Ban Valentin To: Colette Larson DO Sent: 09/25/2017 9:32 AM EDT Subject: Hello I would definitely like an MRI and physical therapy as well if we can do that documented in this encounter Plan of Treatment Not on file documented as of this encounter Visit Diagnoses Not on filedocumented in this encounter Care Teams Computer Tech Relationship Specialty Start Date End Date Bambi Lin DO PCP - General Internal Medicine 02/16/16 05/23/21 Darrian Monson MD PCP - General Internal Medicine 05/24/21 06/20/21 Dean Pollack [address] [place] [id number] PCP - General Internal Medicine 06/21/21 documented as of this encounter
== END 2024-10-22 13:06 | disposition home or self-care (01) ==
LOC: HO.RHE 12:14
PROVIDERS: PCP Student in an Organized Health Care Education/Training Program; Visit Provider Student in an Organized Health Care Education/Training Program
DX: M06.00 Rheumatoid arthritis without rheumatoid factor, unspecified site (principal); Z51.81 Encounter for therapeutic drug level monitoring; Z79.620 Long term (current) use of immunosuppressive biologic
CPT/HCPCS: 99214; G2211

== ENCOUNTER → 2024-10-22 12:13 | Outpatient (BNVA) | payer OTHER, SELFPAY | PROVIDERS: PCP Student in an Organized Health Care Education/Training Program; Visit Provider Student in an Organized Health Care Education/Training Program | DX: M08.0 Unspecified juvenile rheumatoid arthritis (principal); M06.032 Rheumatoid arthritis without rheumatoid factor, left wrist; Z51.81 Encounter for therapeutic drug level monitoring; Z79.620 Long term (current) use of immunosuppressive biologic; Z79.899 Other long term (current) drug therapy | CPT/HCPCS: 99212 ==

== ENCOUNTER 2025-02-22 14:07 | Outpatient (REF) | payer OTHER, SELFPAY ==
--- OUTSIDE RECORDS SUMMARY | 2025-02-22 16:28 | XMS_ITS | Clinical Summary ---
Author Organization [facility] Address [address] [facility] [address] [place] [id number] Phone Care Team Providers Care Sulfonation Equipment Operator Name Role Phone BernardoMadan Willvivian Oneil DO Primary Car e Provider Social History Tobacco Use Types Packs/Day Years Used Date Smoking Tobacco: Never Assessed Education Answer Date Recorded Are you interested in more education? Not on james e 08/10/2022 Are you concerned about learning? Not on file 08/10/2022 No 08/10/2022 No 08/10/2022 Digital Access Answer Date Recorded No 09/11/2022 No 09/11/2022 Reliable internet access at home? Not on file 09/11/2022 Device with a working camera? Not on file Comments Unknown Sex and Gender Information Value Date Recorded Sex Assigned at Not on file Legal Sex Female 11:58 AM EST Gender Identity Not on file Sexual Orientation Not on file Plan of Treatment Not on file Medical Devices Not on file Insurance [employer] [address] [address] [place], [place] [id number] [address] [place] [address] [place] [address] [employer] [address] [place] [address] [place] [address] [place] [address] [employer] [address] [place], [place] [address] Care Teams Sulfonation Equipment Operator Relationship Specialty Start Date End Date Bambi Wei DO [address] [place] [address] PCP - General 03/19/19 Additional Source Comments The information contained in this document represents components of the legal health record. It is not the complete legal health record.[facility]
--- OUTSIDE RECORDS SUMMARY | 2025-02-22 16:28 | XMS_ITS ---
Author Name [facility] Organization Unknown Care Team Organization Name Specialty Phone Email Start Date End Da te [facility] Dean Pollack Primary Care 09/21/202211/13 [facility] Jihan Rodriguez Primary Care 02/20/20222023
--- OUTSIDE RECORDS SUMMARY | 2025-02-22 16:28 | XMS_ITS | Clinical Summary ---
Author Organization [facility] [address] [facility] Address [address] [place] [phone] Phone Care Team Providers Care Curing Supervisor Name Role Phone Dean Pollack MD Primary Care Provider Allergies Active Allergy Reactions Criticality Noted Date Comments Adalimumab Anaphylaxis High 04/06/2016 Hydroxychloroquine Sulfate Other 8 Vision loss Infliximab 01/06/2017 Medications cyclobenzaprine (FLEXERIL) 10 mg tablet Take 0.5-1 [...] propionate (FLONASE) 50 mcg/actuation nasal spray 1 [place] by Nasal route daily. 3 Active clonazePAM [...] 9 tablet 5 5 09/29/19 26 Active aspirin-acetami nophen-caffeine (EXCEDRIN MIGRAINE) 250-250-65 mg per tablet Take 1 tablet by mouth every 8 (eight) hours if needed for headaches. 60 tablet 1 5 Active meloxicam (MOBIC) 15 mg tablet Take 1 tablet (15 mg total) by mouth 1 (one) time each day. 5 Active tocilizumab 20 mg/mL solution Infuse into a venous catheter. Active topiramate (Topamax) 25 mg tablet 1 po hs x 1 week, then 1 po in am and 1 po hs x 1 week, then 1 po am and 2 po hs x 1 week, then 2 po bid 120 each 5 5 Active rizatriptan (MAXALT) 10 mg tablet Take 1 tablet (10 mg total) by mouth 1 (one) time if needed for migraine (may repeat x1). May repeat in 2 hours if unresolved. Do not exceed 30 mg in 24 hours. 9 tablet 5 5 01/07/20 26 Active Active Problems Problem Noted Date Diagnosed Date Iron deficiency anemia 09/28/2024 Anxiety and depression 04/02/2024 Childhood asthma 04/02/2024 Juvenile rheumatoid arthritis ([facility] V24, CMS/ HCC V28) 04/02/2024 Overview (04/02/2024): Onset age 6 DR[facility] Vega at [facility] then Dr. Shipman Treatment prior to [...] 03/21/2017 Depression 03/20/2017 Hemorrhoids 03/20/2017 Rheumatoid arthritis ([facility] V24, [facility] V28) 12/24/2016 Overview (04/02/2024): Onset age 6 DR. Vega at [facility] then Dr. Shipman Treatment prior to [...] Encounters Date Type Department Care Team Description 01/06/2025 3:00 PM EDT Consult [facility] for MS [address] [address] Meseret [place], [place] Migraine with aura and without status migrainosus, not intractable (Primary Dx); Vertiginous migraine from Last 3 Months Immunizations Immunization Administration Dates Next Due Influenza Quadravalent, MDCK [...] History Date Comments Juvenile rheumatoid arthriti s ([facility] V24, [facility] V28) 1997 DX:Juvenile rheumatoid arth ritis ([facility]); COMMENT: dr shipman Anxiety DX:Anxiety Childhood asthma DX:Childhood as thma Hemorrhoids 03/20/2017 DX:Hemorrhoids Depression 03/20/2017 DX:Depression Fibromyalgia 04/06/2016 DX:Fibromyalgia History of anemia 03/02/2016 DX:History of anemia Left shoulder pain 01/31/2017 DX:Left shoul divina pain 01/31/2017 DX:; CO MMENT: Patient says about 2 months; following with her OB Rheumatoid arthritis ([facility]/ C V24, [facility] V28) 12/24/2016 DX:Rheumatoid arthritis ([facility] ) Dyslipidemia DX:Dyslipidemia Lumbar degenerative disc disease [...] Sign Reading Time Taken Comments Blood Pressure 119/83 01/06/2025 2:57 PM EDT Pulse 72 01/06/2025 2:57 PM EDT Temperature 36.6 C (97.8 F) 09/28/2024 9:19 AM EDT Respiratory Rate 16 09/28/2024 9:19 AM EDT Oxygen Saturation 98% 01/06/2025 2:57 PM EDT Inhaled Oxygen Concentration - - Weight 75.3 kg (166 lb) 12/12/2023 3:26 PM EDT Height 149.9 cm (4' 11 ) 09/28/2024 9:19 AM EDT Body Mass Index 33.53 12/12/2023 3:26 PM EDT Plan of Treatment Upcoming Encounters Date Type Department Care Team (Late st Contact Info) Description 03/10/2025 4:00 PM EST Office Visit [facility] [address] [facility] [address] [place] [address] [place], [place] [address] [place] [phone] 03/30/2025 3:45 PM EST Office Visit Adult Medicine [facility] [address] [place] [address] Dean Pollack MD [address] [place] [address] Health Maintenance Due Date Last Done Comments Hepatitis B Vaccines (1 of 3 - 19+ 3-dose series) 2009 Pneumococcal Vaccine: Pediatrics (0 to 5 Years) and At-Risk Patients (6 to 49 Years) (1 of 2 - PCV) 2009 HPV Vaccines (1 - 3-dose SCDM series) 2017 Cervical Cancer Screening: Pap Smear 10/13/2020 10/13/2017 HIV Screening 03/14/2022 Social Influencers of Health Screening 03/14/2022 Cholesterol Screening (Lipid Panel) 03/20/2023 03/20/2018 Depression Screening 04/15/2024 12/12/2023 COVID-19 Vaccine ( - season) 2024 07/05/2021, 06/14/2021 Influenza Vaccine (#1) 2024 , 02/15/2021, 02/12/2020, Additional history exists DTaP,Tdap,and Td Vaccines (2 - Td or Tdap) 04/26/2033 04/26/2023 RSV Immunization Adult Patients (1 - 1-dose 75+ series) 2065 Hepatitis C Screening Completed 05/26/2018 HIB Vaccines [...] Maintenance Results * Depression Screening (12/12/2023) [facility] Depression Screening Abstracted Historical Provider HEALTH MAINTENANCE Final Result * Hepatitis C Screening (05/26/2018) [facility]ologist [facility] Hepatitis C Screening Abstracted Historical Provider HEALTH MAINTENANCE Final Result * (ABNORMAL) Lipid panel (03/20/2018) Pathologist [facility] LDL/HDL Ratio 4 0 - 4 Triglycerides 129 0 - 150 mg/dL Cholesterol 240(A) 0 - 200 mg/dL HDL 62 >=40 mg/dL LDL Cholesterol 153(A) 0 - 100 mg/dL Blood Venous blood specimen / Unknown Historical Provider LAB BLOOD ORDERABLES Xiomara l Result * Pap Smear (10/13/2017) HM Pap smear Normal, Abstracted us Historical Provider HEALTH MAINTENANCE Final Result from Last 3 Months or Most Recently Relevant to Health Maintenance Insurance Care Teams Curing Supervisor Relationship Specialty Start Date End Date Dean Pollack MD [address] [address] PCP - General Internal Medicine 06/21/21
[2025-02-22 18:13] LABS: MANUAL DIFF FLAG NO
[2025-02-22 18:31] LABS: Alanine Aminotransferase 27 U/L (0-31); Albumin Level 4.6 g/dL (3.5-5.0); Alkaline Phosphatase 80 U/L (39-117); Anion Gap 12 (12-20); Aspartate Amino Transferase 24 U/L (5-31); Blood Urea Nitrogen 19 mg/dL (9-16); Calcium 9.3 mg/dL (8.4-10.2); Carbon Dioxide 22 mmol/L (22-29); Chloride 109 mmol/L (96-108); Cholesterol 232 mg/dL (<200); Estimated Glomerular Filt Rate > 60; HDL Cholesterol 53 mg/dL (>40); Potassium 3.6 mmol/L (3.3-5.1); Sodium 139 mmol/L (135-145); Total Protein 8.0 g/dL (6.5-8.0); Triglycerides 148 mg/dL (<150)
[2025-02-22 18:41] LABS: Hematocrit 42.5 % (37.0-47.0); Hemoglobin 14.1 g/dl (12.0-16.0); Imm Gran Abs Auto 0.02 X10*3/uL (0.00-0.03); Imm Gran Pct Auto 0.3 % (0.0-0.4); Lymphocytes Absolute Auto 2.9 X10*3/uL (1.2-4.9); Mean Corpuscular HGB Conc 33.2 g/dl (31.0-35.0); Mean Corpuscular Hemoglobin 28.8 pg (27.0-33.0); Mean Corpuscular Volume 86.7 fL (80.0-98.0); NRBC Abs Auto 0.000 X10*3/uL (0.0-0.012); NRBC Pct Auto 0.0 /100WBC (0.0-0.2); Platelet Count 316 X10*3/uL (160-400); Red Blood Count 4.90 X10*6/uL (4.20-5.50); White Blood Count 6.6 X10*3/uL (4.8-10.8)
== END 2025-02-22 14:08 | disposition home or self-care (01) ==
LOC: HO.HKASLDS 14:07
PROVIDERS: PCP Internal Medicine; Visit Provider Student in an Organized Health Care Education/Training Program
DX: M06.00 Rheumatoid arthritis without rheumatoid factor, unspecified site (principal)
CPT/HCPCS: 36415; 80053; 80061; 85025; 85652; 86140

== ENCOUNTER 2025-02-23 15:19 | Outpatient (AMB) | payer OTHER, SELFPAY ==
--- NOTE | 2025-02-23 15:36 | A.OFFVIS_ITS ---
Vital Signs 02/23/25 15:42 Height 4 ft 11 in Weight 154 lb 1.65 oz BMI 31.1 BP 112/74 Blood Pressure Location Lt brachial Position Sitting Pulse 96 Pulse Source Pulse Oximeter Pulse Oximetry (%) 96 Oxygen Delivery Method Room Air Intake Visit Reasons: RA Intake Note: Patient presents for RA follow up. Allergies No Known Allergies Allergy (Verified 02/23/25 15:41) Medication List - Last Reconciled 02/23/25 by Louann Osman MD albuterol sulfate 90 mcg/actuation (Ventolin HFA) inhalation lorazepam 0.5 mg PO DAILY PRN meclizine 25 mg PO TID PRN meloxicam 15 mg PO DAILY riboflavin (vitamin B2) 400 mg PO DAILY sumatriptan succinate mg PO tocilizumab 4mg/kg intravenously every 4 weeks; topiramate mg PO HPI Comments Details: Patient is a 34-year-old female with seronegative rheumatoid arthritis who presents today for follow up Interval History: Patient last seen 10/22/24 with me. - On Actemra 4mg/kg every 4 weeks IV - Doing okay - Still having sciatica pains - Migraines are worse, started on sumitriptan - Pulled a muscle and started muscle relaxer for that which helps but she does not like the after effects - Back and neck pain. left wrist pain Today - On Actemra 4mg/kg every 4 weeks IV - Stable - Wants to hold off on infusions for now Rheumatologic History: Diagnosed with YULIANA at age 6. JANET+. No hx of uveitis and no TMJ involvement Tried methotrexate, enbrel, humira, remicade, hydroxychloroquine, orencia and cimzia with either decreased effect over time Actemra 2020 - now (effective) Current Rheumatology Medication(s): Actemra 4mg/kg every 4 weeks IV [facility] Medical History (Updated 05/29/24 @ 10:55 by Louann Osman MD) Juvenile rheumatoid arthritis Encounter for monitoring tocilizumab therapy Seronegative rheumatoid arthritis Asthma Anxiety History of anemia Hemorrhoid Frequent headaches Other intervertebral disc degeneration, lumbar region Surgical History History of 2 sections Hx of colonoscopy History of appendectomy Social History Alcohol intake: current Alcohol intake frequency: does not drink Patient Tobacco Use Status: Never used Tobacco e-Cigarette/Vaping Use: Never Used Current occupational status: unemployed Review of Systems Narrative Review of Systems Constitutional: Denies fever, chills, weight loss ENT: Denies vision changes, eye pain or eye redness, dental caries, dry mouth GI: Denies nausea, vomiting, diarrhea, abdominal pain, change in BM Pulm: Denies SOB, PACHECO, hemoptysis, wheezing Cards: Denies chest pain, palpitations Skin: Denies Raynaud's, rash, nail changes, photosensitivity, RECOVERY RN: Denies headaches, weakness, paresthesias, recurrent falls MSK: as per HPI All other systems reviewed and are unremarkable except noted above Physical Exam Exam Exam: Vital signs reviewed Physical Examination CONSTITUITIONAL Patient alert and cooperative. Well appearing and in no apparent painful distress MSK Hands * Right Hand: Able to make a fist. No swelling or tenderness to palpation of the MCPs, PIPs or DIPs. No deformities noted. * Left Hand: Able to make a fist. No swelling or tenderness to palpation of the MCPs, PIPs or DIPs. No deformities noted. Wrists * Right Wrist: Full ROM to flexion and extension. No swelling or TTP * Left Wrist: Decreased ROM. No swelling but TTP Elbows * Right Elbow: Full ROM. No swelling or TTP. No TTP of the medial epicondyle. No TTP of the lateral epicondyle * Left Elbow: Full ROM. No swelling or TTP. No TTP of the medial epicondyle. No TTP of the lateral epicondyle Shoulders * Right shoulder: Full ROM. No swelling noted. No TTP of the AC joint. No TTP of the subacromial bursa. No TTP of the posterior shoulder * Left shoulder: Full ROM. No swelling noted. No TTP of the AC joint. No TTP of the subacromial bursa. No TTP of the posterior shoulder Knees * Right knee: Full ROM. No swelling noted. No TTP of the knee joint line. No TTP of pes anserine bursa * Left knee: Full ROM. No swelling noted. No TTP of the knee joint line. No TTP of pes anserine bursa. Ankles * Right ankle: Good ankle dorsiflexion and plantar flexion. No swelling. No TTP of the ankle joint * Left ankle: Good ankle dorsiflexion and plantar flexion. No swelling. No TTP of the ankle joint Feet * Right foot: Negative squeeze test * Left foot: Negative squeeze test Tender points? * No tenderness to palpation of the bilateral trapezius, supraspinatus, anterior costochondral junctions, bilateral suboccipital muscle insertions SKIN No rashes Vital Signs: Last Vital Signs Pulse 96 02/23/25 15:42 BP 112/74 02/23/25 15:42 Pulse Ox 96 02/23/25 15:42 Oxygen Delivery Method Room Air 02/23/25 15:42 BMI result Body Mass Index 31.1 Results Reviewed Results Reviewed: Laboratory Tests 02/22/25 14:12 WBC 6.6 RBC 4.90 Hgb 14.1 Hct 42.5 Plt Count 316 D ESR 11 Sodium 139 Potassium 3.6 Chloride 109 H Carbon Dioxide 22 BUN 19 H Creatinine 0.80 AST 24 ALT 27 C-Reactive Protein < 0.10 Triglycerides 148 Cholesterol 232 H LDL Cholesterol, Calc 150 H Laboratory Tests 11/09/24 10:34 Hepatitis A IgM Ab Nonreactive Hep Bs Antigen Negative Hep Bs Antibody NONREACTIVE Hep B Core Total Ab Nonreactive Hepatitis C Ab (EIA) Nonreactive TB Test (T-Spot) Com Negative Assessment & Plan Assessment & Plan (1) Seronegative rheumatoid arthritis: Comment: dx with JRA at age 6 tried methotrexate, enbrel, humira, remicade, hydroxychloroquine, orencia and cimzia with either decreased effect over time Actemra infusion approx 2020 effective Code(s): M06.00 - Rheumatoid arthritis without rheumatoid factor, unspecified site Category: Medical Plan: #Seronegative RA Patient is a 34-year-old female with a history of juvenile rheumatoid arthritis who presents today for follow up. Currently in remission/low disease activity on examination with persistent TTP of the left wrist Patient requesting to put her infusions on hold. Discussed that the risk of holding the infusions and the likely relapse and flare of her disease which may be difficult to control Patient understands these risks and wishes to proceed with holding the medication. I offered decreasing the frequency from every 4 weeks to every 6 weeks but patient would prefer to stop the medication for now Plan - Hold Actemra - Meloxicam 15mg daily prn - RTC 3 months - Labs before visit: CBC, CMP, ESR, CRP, lipid panel (2) Encounter for monitoring tocilizumab therapy: Code(s): Z51.81 - Encounter for therapeutic drug level monitoring; Z79.620 - rodent exterminator (current) use of immunosuppressive biologic Category: Medical Plan: #Long-term Use of Tocilizumab Discussed the risks and benefits of tocilizumab with the management of this patient's rheumatic condition. ? Benefits include decreased pain, improved mortality, improved quality of life Risks include LFT abnormalities, elevated triglycerides, GI perforations Contraindicated in a patient with history of diverticulitis Monitoring: ?CBC, CMP, triglycerides Plan I spent 30 minutes reviewing the record and labs, taking a history, examining the patient, discussing the treatment plan and documenting in the medical record Orders: Orders Complete Blood Count Auto Diff 3 Months Z79.899 - Other terminal manager (current) drug therapy C Reactive Protein 3 Months Z79.899 - Other terminal manager (current) drug therapy Erythrocyte Sedimentation Rate 3 Months Z79.899 - Other mcc (current) drug therapy Comprehensive Met. Panel 3 Months Z79.899 - Other terminal manager (current) drug therapy Lipid Panel 3 Months Z79.899 - Other terminal manager (current) drug therapy Coding Level of Care Code Est Pt Level 4 (32228) Complex EM visit Add On G2211 Diagnoses Seronegative rheumatoid arthritis M06.00 Encounter for monitoring tocilizumab therapy Z51.81; Z79.620
[2025-02-23 15:42] VITALS: BP 112/74; PULSE 96; O2SAT 96; BMI 31.1
--- OUTSIDE RECORDS SUMMARY | 2025-02-23 17:00 | XMS_ITS | Clinical Summary ---
Author Organization [facility] Address [address] [facility] [address] [place] [phone] Phone Care Team Providers Care Deburrer Machine Name Role Phone BernardoMadan Willvivian Oneil DO [...] Medical Devices [place] [address] [employer] [address] [place], [place] [address] [place] [place] [address] [place] [address] [place] [address] [employer] [address] [place] [address] [place] [address] [place] [address] [employer] [address] [place], [place] [address] Care Teams Deburrer Machine Relationship Specialty Start Date End Date Bambi Wei DO [address] [place] [address] PCP - General 03/19/19 Additional Source Comments The information contained in this document represents components of the legal health record. It is not the complete legal health record.[facility]
--- OUTSIDE RECORDS SUMMARY | 2025-02-23 17:00 | XMS_ITS | Clinical Summary ---
Author Organization [facility] [address] [facility] Address [address] [place] [phone] Phone Care Team Providers Care Digital Technician Name Role Phone Dean Pollack MD Primary [...] propionate (FLONASE) 50 mcg/actuation nasal spray 1 [place] by Nasal route daily. 3 Active clonazePAM [...] 04/02/2024 Childhood asthma 04/02/2024 Juvenile rheumatoid arthritis ([facility] V24, CMS/ HCC V28) 04/02/2024 Overview (04/02/2024): Onset age 6 DR. Vega at [facility] then Dr. Shipman Treatment prior to [...] 03/21/2017 Depression 03/20/2017 Hemorrhoids 03/20/2017 Rheumatoid arthritis ([facility] V24, [facility] V28) 12/24/2016 Overview (04/02/2024): Onset age 6 DR. Vega at [facility] then Dr. Shipman Treatment prior to [...] Team Description 01/06/2025 3:00 PM EDT Consult [facility] for MS [address] [address] [place] Migraine with [...] History Date Comments Juvenile rheumatoid arthriti s ([facility] V24, [facility] V28) 1997 DX:Juvenile rheumatoid arth ritis ([facility]); COMMENT: dr shipman Anxiety DX:Anxiety Childhood asthma DX:Childhood as thma Hemorrhoids 03/20/2017 DX:Hemorrhoids Depression 03/20/2017 DX:Depression Fibromyalgia 04/06/2016 DX:Fibromyalgia History of anemia 03/02/2016 DX:History of anemia Left shoulder pain 01/31/2017 DX:Left shoul divina pain 01/31/2017 DX:; CO MMENT: Patient says about 2 months; following with her OB Rheumatoid arthritis ([facility]/ C V24, [facility] V28) 12/24/2016 DX:Rheumatoid arthritis ([facility] ) Dyslipidemia DX:Dyslipidemia Lumbar degenerative disc disease [...] Description 03/10/2025 4:00 PM EST Office Visit [facility] [address] [place] [address] [place]rade, [place] [address] [place] [phone] 03/30/2025 3:45 PM EST Office Visit Adult Medicine [facility] [address] [place] [address] Dean Pollack MD [address] [place] [phone] Health Maintenance Due Date Last Done Comments [...] Maintenance Results * Depression Screening (12/12/2023) Pathologist [facility] Depression Screening Abstracted Historical Provider HEALTH MAINTENANCE Final Result * Hepatitis C Screening (05/26/2018) Pathologist [facility] Hepatitis C Screening Abstracted Historical Provider HEALTH [...] to Health Maintenance Insurance Care Teams Digital Technician Relationship Specialty Start Date End Date Dean Pollack MD [address] [place] [address] PCP - General Internal Medicine 06/21/21
== END 2025-02-23 16:03 | disposition home or self-care (01) ==
LOC: HO.RHES 15:19
PROVIDERS: PCP Student in an Organized Health Care Education/Training Program; Visit Provider Student in an Organized Health Care Education/Training Program
DX: M06.00 Rheumatoid arthritis without rheumatoid factor, unspecified site (principal); Z51.81 Encounter for therapeutic drug level monitoring; Z79.620 Long term (current) use of immunosuppressive biologic
CPT/HCPCS: 99214

== ENCOUNTER → 2025-02-23 15:19 | Outpatient (BNVA) | payer OTHER, SELFPAY | PROVIDERS: PCP Student in an Organized Health Care Education/Training Program; Visit Provider Student in an Organized Health Care Education/Training Program | DX: M08.3 Juvenile rheumatoid polyarthritis (seronegative) (principal); Z79.899 Other long term (current) drug therapy | CPT/HCPCS: 99212 ==